=== PATIENT | female | born 1970 | race Caucasian/White ===

== ENCOUNTER 2017-03-23 21:37 | Emergency (ER) | payer MEDICARE, MEDICAID ==
[2017-03-23] MEDS ORDERED: SODIUM CHLORIDE 0.9% 1,000 ML IV ONE ×2 (21:49→22:19)
[2017-03-23] MEDS ORDERED: ONDANSETRON 4 MG/2 ML VIAL IVP STA (21:49)
[2017-03-23] MEDS ORDERED: ONDANSETRON 4 MG/2 ML VIAL ONE (22:19)
[2017-03-23 22:20] LABS: ALBUMIN/GLOBULIN RATIO 1.1 (1.0-2.2); BILIRUBIN,TOTAL 0.7 mg/dL (0.2-1.0); CALCIUM 9.3 mg/dL (8.5-10.3); CREATININE 0.8 mg/dL (0.4-1.0); POTASSIUM 3.6 mmol/L (3.5-5.0); TOTAL PROTEIN 8.2 g/dL (6.7-8.2)
[2017-03-23 22:25] LABS: BILIRUBIN,URINE NEGATIVE (NEGATIVE)
[2017-03-23 22:26] LABS: UA CHARGE (STRIP ONLY) YES; UR CULTURE IF IND NOT INDICATED
[2017-03-23 22:37] LABS: BASOPHILS # (AUTO) 0.1 10^3/uL (0.0-0.1); BASOPHILS % (AUTO) 0.8 %; EOSINOPHILS # (AUTO) 0.1 10^3/uL (0.0-0.7); EOSINOPHILS % (AUTO) 1.1 %; HGB - HEMOGLOBIN 14.7 g/dL (12.0-16.0); LYMPHOCYTES # (AUTO) 1.5 10^3/uL (1.5-3.5); LYMPHOCYTES % (AUTO) 15.5 %; MEAN CORPUSCULAR HEMOGLOBIN 29.8 pg (27.0-31.0); MEAN CORPUSCULAR HGB CONC 33.4 g/dL (32.0-36.0); MEAN PLATELET VOLUME 8.8 fL (7.9-10.8); MONOCYTES # (AUTO) 0.5 10^3/uL (0.0-1.0); MONOCYTES % (AUTO) 4.9 %; NEUTROPHILS # (AUTO) 7.6 10^3/uL (1.5-6.6); NEUTROPHILS % (AUTO) 77.7 %; NUCLEATED RED BLOOD CELLS AUTO 0.1 /100WBC; RED BLOOD COUNT 4.94 10^6/uL (4.20-5.40); RED CELL DISTRIBUTION WIDTH 13.6 % (12.0-15.0); UNCORRECTED WHITE BLOOD COUNT 9.8 x10^3/uL; WHITE BLOOD COUNT 9.8 x10^3/uL (4.8-10.8)
[2017-03-23] MEDS ORDERED: INSULIN REGULAR HUMAN 100 UNIT/1 ML 10 ML MDV SUBQ STA (22:43)
--- NOTE | 2017-03-23 22:43 | ED Physician Documentation ---
PD HPI NVD - Stated complaint Stated Complaint: DIZZINESS/VOMITING - Chief complaint Chief Complaint: Abd Pain - History obtained from History obtained from: Patient - Additonal information Additional information: The patient is a 46-year-old female with history of schizophrenia and history of type 2 diabetes, not taking her medication, who presents with vomiting 2 today. She also reports dizziness, and endorses polyuria and polydipsia. She denies abdominal pain, fever, dysuria, headache, cough, or shortness of breath. She denies history of similar symptoms in the past, but review of her medical records reveals previous evaluations in the emergency department in which her blood sugar was high and she had not been taking her diabetes medication. Review of Systems Constitutional: denies: Fever Ears: denies: Tinnitus/ringing Nose: denies: Congestion Throat: denies: Sore throat Cardiac: denies: Chest pain / pressure Respiratory: denies: Dyspnea, Cough GI: reports: Nausea, Vomiting. denies: Abdominal Pain, Diarrhea : denies: Dysuria Skin: denies: Rash Musculoskeletal: denies: Back pain Neurologic: denies: Headache Endocrine: reports: Polydypsia, Polyuria PD PAST MEDICAL HISTORY - Past Medical History Cardiovascular: Hypertension Respiratory: None Neuro: None Endocrine/Autoimmune: Type 2 diabetes GI: None MANAGER SUMMER: None : None HEENT: None Psych: Depression, Schizophrenia Musculoskeletal: None Derm: None - Past Surgical History Past Surgical History: No - Present Medications Home Medications: Ambulatory Orders Medication Instructions Recorded Confirmed Glipizide [Glipizide Xl] 10 mg PO DAILY #30 tab.er.24 03/24/17 - Allergies Allergies/Adverse Reactions: Allergies Allergy/AdvReac Type Severity Reaction Status Date / Time Penicillins Allergy Unknown UNKNOWN Verified 03/23/17 22:36 - Social History Does the pt smoke?: No Smoking Status: Never smoker Does the pt drink ETOH?: No Does the pt have substance abuse?: No - Immunizations Immunizations are current?: Yes PD ED PE NORMAL - Vitals Vital signs reviewed: Yes (hypertensive and tachycardic) - General General: Alert and oriented X 3, Well developed/nourished, Other (She appears calm, and not agitated as I have seen her in the past.) - HEENT HEENT: Atraumatic, EOMI, Pharynx benign - Neck Neck: Supple, no meningeal sign, No adenopathy, No JVD - Cardiac Cardiac: No murmur, Other (Rapid rate, regular rhythm.) - Respiratory Respiratory: No respiratory distress, Clear bilaterally - Abdomen Abdomen: Soft, Non tender - Back Back: No CVA TTP - Derm Derm: No rash - Extremities Extremities: No edema, No calf tenderness / cord - Neuro Neuro: Alert and oriented X 3, No motor deficit, Normal speech Results - Vitals Vitals: Vital Signs - 24 hr 03/24/17 00:05 Heart Rate 97 Respiratory 22 Rate Blood Pressure 176/95 H O2 Saturation 98 Oxygen O2 Source Room air - Labs Labs: Laboratory Tests 03/23/17 03/23/17 03/23/17 21:58 22:18 22:30 WBC 9.8 RBC 4.94 Hgb 14.7 Hct 44.0 MCV 89.0 MCH 29.8 MCHC 33.4 RDW 13.6 Plt Count 224 MPV 8.8 Neut # 7.6 H Lymph # 1.5 [place] # 0.5 Eos # 0.1 Baso # 0.1 Absolute Nucleated RBC 0.01 Nucleated RBCs 0.1 Sodium 138 Potassium 3.6 Chloride 104 Carbon Dioxide 28 Anion Gap 6.0 BUN 10 Creatinine 0.8 Estimated GFR (MDRD) 77 L Glucose 416 H POC Whole Bld Glucose Calcium 9.3 Total Bilirubin 0.7 AST 21 ALT 20 Alkaline Phosphatase 120 Total Protein 8.2 Albumin 4.3 Globulin 3.8 Albumin/Globulin Ratio 1.1 Lipase 34 Urine Color YELLOW Urine Clarity CLEAR Urine pH 7.0 Ur Specific [place] 1.010 Urine Protein NEGATIVE Urine Glucose (UA) >=1000 H Urine Ketones NEGATIVE Urine Occult Blood NEGATIVE Urine Nitrite NEGATIVE Urine Bilirubin NEGATIVE Urine Urobilinogen 0.2 (NORMAL) Ur Leukocyte Esterase NEGATIVE Ur Microscopic Review NOT INDICATED Urine Culture Comments NOT INDICATED 03/23/17 03/24/17 23:40 00:48 WBC RBC Hgb Hct MCV MCH MCHC RDW Plt Count MPV Neut # Lymph # [place] # Eos # Baso # Absolute Nucleated RBC Nucleated RBCs Sodium Potassium Chloride Carbon Dioxide Anion Gap BUN Creatinine Estimated GFR (MDRD) Glucose POC Whole Bld Glucose 358 H 277 H Calcium Total Bilirubin AST ALT Alkaline Phosphatase Total Protein Albumin Globulin Albumin/Globulin Ratio Lipase Urine Color Urine Clarity Urine pH Ur Specific [place] Urine Protein Urine Glucose (UA) Urine Ketones Urine Occult Blood Urine Nitrite Urine Bilirubin Urine Urobilinogen Ur Leukocyte Esterase Ur Microscopic Review Urine Culture Comments PD MEDICAL DECISION MAKING - ED course Complexity details: reviewed old records, reviewed results, re-evaluated patient , considered differential, d/w patient, d/w family ED course: The patient's presentation is significant for hyperglycemia in a diabetic who has not been taking her diabetic medication. She has associated dehydration, with hypertension and tachycardia. She does not present with ketoacidosis. Her CBC is normal, and her physical exam does not suggest an infectious presentation. Urinalysis is negative except for glucose of greater than 1000. Ketones are negative. Chemistry panel reveals a glucose of 416, with normal BUN /creatinine of 10 and 0.8. Treatment in the emergency department included administration of normal saline 2 L IV, Zofran 4 mg IV, and regular insulin 5 units subcutaneously. Repeat fingerstick blood sugar is improved but remains high at 358. An additional 5 units of regular insulin was administered subcutaneously, and repeat blood sugar further improved to 277. She demonstrates ability to drink fluids without recurrent nausea or vomiting. I discussed with her and her mother the importance of taking her diabetic medication, outpatient follow-up, as well as potentially worrisome signs or symptoms that should prompt reevaluation in the emergency department. She is being discharged with prescription for glipizide. Departure - Departure Disposition: 01 Home, Self Care Clinical Impression: Dehydration Vomiting Qualifiers: Vomiting type: unspecified Vomiting Intractability: non-intractable Nausea presence: with nausea Qualified Code(s): R11.2 - Nausea with vomiting, unspecified Diabetes mellitus with hyperglycemia Qualifiers: Diabetes mellitus type: type 2 Diabetes mellitus intermediate insulin use: without intermediate frame tender use Qualified Code(s): E11.65 - Type 2 diabetes mellitus with hyperglycemia Condition: Stable Instructions: ED Hyperglycemia Diabetic Follow-Up: Tonja Thurston ARNP [Primary Care Provider] - Prescriptions: Glipizide [Glipizide Xl] 10 mg PO DAILY #30 tab.er.24 Comments: Take glipizide daily as prescribed. Drink plenty of fluids. Follow-up with your primary physician within 1 week. Call to schedule an appointment. Return to the emergency department if you develop persistent vomiting, abdominal pain, or otherwise worsening symptoms. Discharge Date/Time: 03/24/17 01:10
[2017-03-23] MEDS ORDERED: INSULIN REGULAR HUMAN 100 UNIT/1 ML 10 ML MDV ONE (22:50)
[2017-03-24] MEDS ORDERED: INSULIN REGULAR HUMAN 100 UNIT/1 ML 10 ML MDV SUBQ STA
[2017-03-24 00:05] VITALS: BP 176/95
[2017-03-24] MEDS ORDERED: INSULIN REGULAR HUMAN 100 UNIT/1 ML 10 ML MDV ONE (00:13)
== END 2017-03-24 01:10 | disposition home or self-care (01) ==
LOC: ED 21:37
DX: E86.0 Dehydration (principal); R11.2 Nausea with vomiting, unspecified; E11.65 Type 2 diabetes mellitus with hyperglycemia; Z91.14 Patient's other noncompliance with medication regimen; I10 Essential (primary) hypertension; R00.0 Tachycardia, unspecified
CPT/HCPCS: 36415; 80053; 81003; 83690; 85025; 96374; 99284; J1815; 81001; 87086

== ENCOUNTER 2021-11-26 14:53 | Emergency (ER) | payer MEDICARE, MEDICAID ==
[2021-11-26 15:01] VITALS: BP 200/80
--- NOTE | 2021-11-26 15:12 | ED Physician Documentation ---
History of Present Illness - Stated complaint Stated Complaint: HEADACHE - Chief complaint Chief Complaint: General - History obtained from History obtained from: Patient - Additonal information Additional information: This is a 51-year-old woman with history of diabetes and schizophrenia who states she is 48 years old and requests a test. When queried as to why she thinks she might be it is because she is 3 weeks late on her period. She is not having any cramping or bleeding. I asked her why she did not go to the drugstore to get a test and she said she did not know you could do that. She is noncompliant with her diabetes medications but declines having her blood sugar checked today. Review of Systems GI: denies: Abdominal Pain, Nausea, Vomiting, Diarrhea : denies: Dysuria, Frequency, Hesitancy, Vaginal bleeding PD PAST MEDICAL HISTORY - Past Medical History Cardiovascular: Hypertension Respiratory: None Endocrine/Autoimmune: Type 2 diabetes GI: None TYPE COPYIST: None : None HEENT: None Psych: Depression, Schizophrenia Musculoskeletal: None Derm: None - Past Surgical History Past Surgical History: No - Present Medications Home Medications: Ambulatory Orders Medication Instructions Recorded Confirmed Glipizide [Glipizide Xl] 10 mg PO DAILY #30 tab.er.24 03/24/17 - Allergies Allergies/Adverse Reactions: Allergies Allergy/AdvReac Type Severity Reaction Status Date / Time Penicillins Allergy Unknown UNKNOWN Verified 03/23/17 22:36 - Social History Does the pt smoke?: No Smoking Status: Never smoker Does the pt drink ETOH?: No Does the pt have substance abuse?: No - Immunizations Immunizations are current?: Yes PD ED PE NORMAL - Vitals Vital signs reviewed: Yes - General General: Alert and oriented X 3, No acute distress - Neuro Neuro: Alert and oriented X 3, Normal speech - Psych Psych: Normal mood, Normal affect Results - Vitals Vitals: Vital Signs - 24 hr 11/26/21 14:57 Temperature 36.5 C Heart Rate 80 Respiratory 16 Rate Blood Pressure 200/80 H O2 Saturation 99 Oxygen O2 Source Room air - Labs Labs: Laboratory Tests 11/26/21 15:05 Urine HCG, Qual NEGATIVE PD MEDICAL DECISION MAKING - ED course ED course: 51-year-old woman presents with concern for , She had a missed menses. Discussed with her that this may be normal at her age. Note made on the chart that she has a history of pseudocyesis. She declined further work-up for blood pressure or potential blood sugar issues today. Encouraged primary care follow- up for this. Departure - Departure Disposition: 01 Home, Self Care Clinical Impression: Not currently Condition: Good Comments: You are seen today for a test, note in the future that for simple questions of you can get test quite treat cheaply at the drugstore. Return for new or worsening symptoms. We did note that your blood pressure was quite elevated and as discussed you are not managing your diabetes. You have declined a blood sugar test today. Recommend you follow-up with your primary care physician, next available appointment for routine care and management of uncontrolled diabetes and blood pressure.
[2021-11-26 15:18] LABS: HCG UR QUAL NEGATIVE
== END 2021-11-26 15:30 | disposition home or self-care (01) ==
LOC: ED 14:53
DX: N91.2 Amenorrhea, unspecified (principal); I10 Essential (primary) hypertension; E11.9 Type 2 diabetes mellitus without complications
CPT/HCPCS: 81025; 99281; 99283

== ENCOUNTER 2022-07-31 11:24 | Emergency (ER) | payer MEDICAID ==
[2022-07-31 14:25] LABS: B. PARAPERTUSSIS- RESP PCR PAN NOT DETECTED; B. PERTUSSIS- RESP PCR PANEL NOT DETECTED; C. PNEUMONIAE- RESP PCR PANEL NOT DETECTED; CORONAVIRUS 229E-RESP PCR NOT DETECTED; CORONAVIRUS HKU1-RESP PCR NOT DETECTED; CORONAVIRUS NL63-RESP PCR NOT DETECTED; CORONAVIRUS OC43-RESP PCR NOT DETECTED; HUMAN METAPNEUMOVIRUS NOT DETECTED; INFLUENZA A- RESP PCR PANEL NOT DETECTED; INFLUENZA B - RESP PCR PANEL NOT DETECTED; M. PNEUMONIAE- RESP PCR PANEL NOT DETECTED; PARAINFLUENZA VIRUS 1 NOT DETECTED; PARAINFLUENZA VIRUS 2 NOT DETECTED; PARAINFLUENZA VIRUS 3 NOT DETECTED; PARAINFLUENZA VIRUS 4 NOT DETECTED; RHINOVIRUS/ENTEROVIRUS NOT DETECTED; RSV- RESP PCR PANEL NOT DETECTED; SARS-CoV-2 -RESP PCR PANEL NOT DETECTED
--- NOTE | 2022-07-31 15:55 | ED Physician Documentation ---
History of Present Illness - Stated complaint Stated Complaint: BODY ACHE/CHILLS - Chief complaint Chief Complaint: General - Additonal information Additional information: 51-year-old female who has a history of schizophrenia as well as diabetes presents the emergency department stating she does not feel well. She reports that she has chills. She denies abdominal pain, chest pain, shortness of air, nausea or vomiting. She is unsure if she is . She has a very flat affect. She simply answers no to most questions. Denies taking any medications. Review of Systems Constitutional: reports: Fever, Myalgias, Fatigue Throat: reports: Reviewed and negative Cardiac: reports: Reviewed and negative Respiratory: reports: Reviewed and negative GI: reports: Reviewed and negative Neurologic: reports: Headache Psychiatric: reports: Other (Flat affect) PD PAST MEDICAL HISTORY - Past Medical History Cardiovascular: Hypertension Respiratory: None Endocrine/Autoimmune: Type 2 diabetes GI: None PRIVACY ATTORNEY: None : None HEENT: None Psych: Depression, Schizophrenia Musculoskeletal: None Derm: None - Past Surgical History Past Surgical History: No - Present Medications Home Medications: Ambulatory Orders Medication Instructions Recorded Confirmed No Known Home Medications 07/31/22 07/31/22 - Allergies Allergies/Adverse Reactions: Allergies Allergy/AdvReac Type Severity Reaction Status Date / Time Penicillins Allergy Unknown UNKNOWN Verified 03/23/17 22:36 - Social History Does the pt smoke?: No Smoking Status: Never smoker Does the pt drink ETOH?: No Does the pt have substance abuse?: No - Immunizations Immunizations are current?: Yes PD ED PE NORMAL - General General: Alert and oriented X 3, No acute distress - HEENT HEENT: PERRL, Moist mucous membranes, Other (Subconjunctival hemorrhage right eye) - Neck Neck: Supple, no meningeal sign, No adenopathy - Cardiac Cardiac: RRR, No murmur - Respiratory Respiratory: No respiratory distress, Clear bilaterally - Abdomen Abdomen: Normal bowel sounds, Soft, Non tender, Non distended - Female Female : Deferred - Back Back: No CVA TTP - Derm Derm: Normal color, Warm and dry - Extremities Extremities: No deformity, No tenderness to palpate, Normal ROM s pain - Neuro Neuro: Alert and oriented X 3, groover and turner 2-12 intact Eye Opening: Spontaneous Motor: Obeys Commands Verbal: Oriented GCS Score: 15 - Psych Psych: No: Normal affect (Flat affect. Poor eye contact.) Results - Vitals Vitals: Vital Signs - 24 hr 07/31/22 07/31/22 07/31/22 12:00 12:05 15:54 Temperature 37.4 C 37.3 C 37.0 C Heart Rate 92 92 88 Respiratory 16 16 16 Rate Blood Pressure 225/96 H 225/96 H 197/105 H O2 Saturation 98 98 100 Oxygen O2 Source Room air - Labs Labs: Laboratory Tests 07/31/22 07/31/22 07/31/22 13:20 15:51 15:51 WBC 9.3 RBC 4.56 Hgb 13.4 Hct 41.4 MCV 90.8 MCH 29.4 MCHC 32.4 RDW 13.2 Plt Count 230 MPV 10.5 Neut # (Auto) 5.7 Lymph # (Auto) 2.8 [place] # (Auto) 0.5 Eos # (Auto) 0.2 Baso # (Auto) 0.1 Absolute Nucleated RBC 0.00 Nucleated RBC % 0.0 Sodium 143 Potassium 3.6 Chloride 108 Carbon Dioxide 29 Anion Gap 6.0 BUN 12 Creatinine 0.9 Estimated GFR (MDRD) 65 L Glucose 130 H Calcium 9.5 Total Bilirubin 0.6 AST 24 ALT 21 Alkaline Phosphatase 72 Total Protein 8.3 H Albumin 4.3 Globulin 4.0 Albumin/Globulin Ratio 1.1 Lipase 51 Urine Color Urine Clarity Urine pH Ur Specific [place] Urine Protein Urine Glucose (UA) Urine Ketones Urine Occult Blood Urine Nitrite Urine Bilirubin Urine Urobilinogen Ur Leukocyte Esterase Ur Microscopic Review Urine Culture Comments Urine HCG, Qual Nasal Adenovirus (PCR) NOT DETECTED Nasal B. parapertussis DNA (PCR) NOT DETECTED Nasal Coronavir 229E PCR NOT DETECTED Nasal Coronavir HKU1 PCR NOT DETECTED Nasal Coronavir NL63 PCR NOT DETECTED Nasal Coronavir OC43 PCR NOT DETECTED Nasal Enterovir/Rhinovir PCR NOT DETECTED Nasal Influenza B PCR NOT DETECTED Nasal Influenza A PCR NOT DETECTED Nasal Parainfluen 1 PCR NOT DETECTED Nasal Parainfluen 2 PCR NOT DETECTED Nasal Parainfluen 3 PCR NOT DETECTED Nasal Parainfluen 4 PCR NOT DETECTED Nasal RSV (PCR) NOT DETECTED Nasal B.pertussis DNA PCR NOT DETECTED Nasal C.pneumoniae (PCR) NOT DETECTED [place] Human Metapneumo PCR NOT DETECTED Nasal M.pneumoniae (PCR) NOT DETECTED Nasal SARS-CoV-2 (PCR) NOT DETECTED 07/31/22 07/31/22 15:51 15:51 WBC RBC Hgb Hct MCV MCH MCHC RDW Plt Count MPV Neut # (Auto) Lymph # (Auto) [place] # (Auto) Eos # (Auto) Baso # (Auto) Absolute Nucleated RBC Nucleated RBC % Sodium Potassium Chloride Carbon Dioxide Anion Gap BUN Creatinine Estimated GFR (MDRD) Glucose Calcium Total Bilirubin AST ALT Alkaline Phosphatase Total Protein Albumin Globulin Albumin/Globulin Ratio Lipase Urine Color YELLOW Urine Clarity CLEAR Urine pH 6.0 Ur Specific [place] 1.020 Urine Protein NEGATIVE Urine Glucose (UA) NEGATIVE Urine Ketones NEGATIVE Urine Occult Blood NEGATIVE Urine Nitrite NEGATIVE Urine Bilirubin NEGATIVE Urine Urobilinogen 0.2 (NORMAL) Ur Leukocyte Esterase NEGATIVE Ur Microscopic Review NOT INDICATED Urine Culture Comments NOT INDICATED Urine HCG, Qual NEGATIVE Nasal Adenovirus (PCR) Nasal B. parapertussis DNA (PCR) Nasal Coronavir 229E PCR Nasal Coronavir HKU1 PCR Nasal Coronavir NL63 PCR Nasal Coronavir OC43 PCR Nasal Enterovir/Rhinovir PCR Nasal Influenza B PCR Nasal Influenza A PCR Nasal Parainfluen 1 PCR Nasal Parainfluen 2 PCR Nasal Parainfluen 3 PCR Nasal Parainfluen 4 PCR Nasal RSV (PCR) Nasal B.pertussis DNA PCR Nasal C.pneumoniae (PCR) [place] Human Metapneumo PCR Nasal M.pneumoniae (PCR) Nasal SARS-CoV-2 (PCR) PD MEDICAL DECISION MAKING - ED course Complexity details: reviewed old records, reviewed results, re-evaluated patient, considered differential, d/w patient ED course: 51-year-old female who has a history of diabetes as well as schizophrenia presents to the emergency department with chief complaint that she feels unwell. She has a very flat affect and does not make good eye contact. She endorses a headache. Denies chest pain shortness of air belly pain. She appears well- groomed well dressed and well cared for. A bio fire respiratory panel was negative. CBC and electrolytes were without acute worrisome findings. Nothing to suggest DKA. Urine is without findings of infection and she is not . We do note modestly elevated blood pressure which has been seen with similar ED visits. I have encouraged patient to follow her blood pressure closely with her primary care provider. She is discharged home in stable condition. Departure - Departure Disposition: 01 Home, Self Care Clinical Impression: Elevated blood pressure reading, History of schizophrenia Fatigue Qualifiers: Fatigue type: unspecified Qualified Code(s): R53.83 - Other fatigue Condition: Stable Record reviewed to determine appropriate education?: Yes Comments: Vani you came to the emergency department today stating that you have been feeling unwell for the last few days. Here in the emergency department your CBC and electrolytes were normal. A viral panel to check for different viruses was also negative. Your clinical physical exam was unremarkable. The only exception was your elevated blood pressure which you have had with previous ER visits. I encourage you to follow closely with your primary care doctor to discuss management of this in the long-term.
[2022-07-31 15:58] LABS: BASOPHILS # (AUTO) 0.1 10^3/uL (0.0-0.1); BASOPHILS % (AUTO) 0.6 %; EOSINOPHILS # (AUTO) 0.2 10^3/uL (0.0-0.7); EOSINOPHILS % (AUTO) 1.9 %; HCT - HEMATOCRIT 41.4 % (37.0-47.0); HGB - HEMOGLOBIN 13.4 g/dL (12.0-16.0); LYMPHOCYTES # (AUTO) 2.8 10^3/uL (1.5-3.5); LYMPHOCYTES % (AUTO) 30.5 %; MEAN CORPUSCULAR HEMOGLOBIN 29.4 pg (27.0-31.0); MEAN CORPUSCULAR HGB CONC 32.4 g/dL (32.0-36.0); MEAN CORPUSCULAR VOLUME 90.8 fL (81.0-99.0); MEAN PLATELET VOLUME 10.5 fL (7.9-10.8); MONOCYTES # (AUTO) 0.5 10^3/uL (0.0-1.0); MONOCYTES % (AUTO) 5.4 %; NEUTROPHILS # (AUTO) 5.7 10^3/uL (1.5-6.6); NEUTROPHILS % (AUTO) 61.4 %; PLT - PLATELET COUNT 230 10^3/uL (130-450); RED BLOOD COUNT 4.56 10^6/uL (4.20-5.40); RED CELL DISTRIBUTION WIDTH 13.2 % (12.0-15.0); WHITE BLOOD COUNT 9.3 x10^3/uL (4.8-10.8)
[2022-07-31 16:03] LABS: BILIRUBIN,URINE NEGATIVE (NEGATIVE); GLUCOSE, URINE (UA) NEGATIVE (NEGATIVE); KETONES,URINE (UA) NEGATIVE (NEGATIVE); LEUKOCYTE ESTERASE, URINE NEGATIVE (NEGATIVE); NITRITE,URINE NEGATIVE (NEGATIVE); OCCULT BLOOD,URINE NEGATIVE (NEGATIVE); PROTEIN,URINE NEGATIVE (NEGATIVE); UROBILINOGEN,URINE 0.2 (NORMAL) E.U./dL (NORMAL)
[2022-07-31 16:05] LABS: HCG UR QUAL NEGATIVE
[2022-07-31 16:06] LABS: CLARITY,URINE CLEAR (CLEAR)
[2022-07-31 16:11] LABS: ALBUMIN 4.3 g/dL (3.2-5.5); ALBUMIN/GLOBULIN RATIO 1.1 (1.0-2.2); BILIRUBIN,TOTAL 0.6 mg/dL (0.2-1.0); CALCIUM 9.5 mg/dL (8.5-10.3); CREATININE 0.9 mg/dL (0.4-1.0); POTASSIUM 3.6 mmol/L (3.5-5.0); TOTAL PROTEIN 8.3 g/dL (6.7-8.2)
[2022-07-31 16:34] VITALS: BP 170/80
== END 2022-07-31 16:47 | disposition home or self-care (01) ==
LOC: ED 11:24
DX: R03.0 Elevated blood-pressure reading, without diagnosis of hypertension (principal); R53.83 Other fatigue; F20.9 Schizophrenia, unspecified; E11.9 Type 2 diabetes mellitus without complications; Z20.822 Contact with and (suspected) exposure to COVID-19
CPT/HCPCS: 36415; 80053; 81001; 81003; 81025; 83690; 85025; 87086; 87633; 99282; 99283

== ENCOUNTER 2023-02-04 10:32 | Emergency (ER) | payer MEDICAID ==
[2023-02-04 11:25] LABS: RAPID STREP SCREEN Negative (Negative)
[2023-02-04 13:03] LABS: B. PARAPERTUSSIS- RESP PCR PAN NOT DETECTED; B. PERTUSSIS- RESP PCR PANEL NOT DETECTED; C. PNEUMONIAE- RESP PCR PANEL NOT DETECTED; CORONAVIRUS 229E-RESP PCR NOT DETECTED; CORONAVIRUS HKU1-RESP PCR NOT DETECTED; CORONAVIRUS NL63-RESP PCR NOT DETECTED; CORONAVIRUS OC43-RESP PCR NOT DETECTED; HUMAN METAPNEUMOVIRUS NOT DETECTED; INFLUENZA A- RESP PCR PANEL NOT DETECTED; INFLUENZA B - RESP PCR PANEL NOT DETECTED; M. PNEUMONIAE- RESP PCR PANEL NOT DETECTED; PARAINFLUENZA VIRUS 1 NOT DETECTED; PARAINFLUENZA VIRUS 2 NOT DETECTED; PARAINFLUENZA VIRUS 3 NOT DETECTED; PARAINFLUENZA VIRUS 4 NOT DETECTED; RHINOVIRUS/ENTEROVIRUS NOT DETECTED; RSV- RESP PCR PANEL NOT DETECTED; SARS-CoV-2 -RESP PCR PANEL NOT DETECTED
[2023-02-04] MEDS ORDERED: PROCHLORPERAZINE 10 MG/2 ML VIAL IVP STA (13:31)
[2023-02-04] MEDS ORDERED: KETOROLAC 30 MG/ML VIAL IVP STA (13:32)
[2023-02-04] MEDS ORDERED: diphenhydrAMINE INJ 50 MG/ML VIAL IVP STA (13:32)
[2023-02-04 13:40] LABS: BASOPHILS # (AUTO) 0.1 10^3/uL (0.0-0.1); BASOPHILS % (AUTO) 0.6 %; EOSINOPHILS # (AUTO) 0.2 10^3/uL (0.0-0.7); EOSINOPHILS % (AUTO) 1.6 %; HCT - HEMATOCRIT 43.5 % (37.0-47.0); HGB - HEMOGLOBIN 14.2 g/dL (12.0-16.0); LYMPHOCYTES # (AUTO) 3.1 10^3/uL (1.5-3.5); LYMPHOCYTES % (AUTO) 28.8 %; MEAN CORPUSCULAR HEMOGLOBIN 29.6 pg (27.0-31.0); MEAN CORPUSCULAR HGB CONC 32.6 g/dL (32.0-36.0); MEAN CORPUSCULAR VOLUME 90.6 fL (81.0-99.0); MEAN PLATELET VOLUME 10.1 fL (7.9-10.8); MONOCYTES # (AUTO) 0.5 10^3/uL (0.0-1.0); MONOCYTES % (AUTO) 4.4 %; NEUTROPHILS # (AUTO) 6.9 10^3/uL (1.5-6.6); NEUTROPHILS % (AUTO) 64.3 %; PLT - PLATELET COUNT 243 10^3/uL (130-450); RED CELL DISTRIBUTION WIDTH 13.1 % (12.0-15.0); WHITE BLOOD COUNT 10.8 x10^3/uL (4.8-10.8)
[2023-02-04 13:41] LABS: VBG PCO2 55.8 mmHg (41-51); VBG PH 7.335 (7.31-7.41); VBG PO2 20.3 mmHg (25-47)
[2023-02-04 13:42] LABS: VBG BASE EXCESS 1.9 mmol/L (-2 - +2); VBG HCO3 29.1 mmol/L (23-28); VBG OXYGEN SATURATION 34.1 % (60-80); VBG TOTAL CO2 30.8 mmol/L (24-29)
[2023-02-04 13:49] LABS: INR 0.9 (0.8-1.2); PT - PROTHROMBIN TIME 10.6 secs (9.9-12.6)
[2023-02-04 13:55] LABS: ACETAMINOPHEN < 10 ug/mL (10-30); ALBUMIN 4.4 g/dL (3.2-5.5); ALKALINE PHOSPHATASE 89 IU/L (42-121); ALT ALANINE AMINOTRANSFERASE 19 IU/L (10-60); AST ASPARTATE AMINOTRANSFERASE 21 IU/L (10-42); BILIRUBIN,TOTAL 0.7 mg/dL (0.2-1.0); BUN - BLOOD UREA NITROGEN 13 mg/dL (6-20); CALCIUM 9.7 mg/dL (8.5-10.3); CARBON DIOXIDE - CO2 29 mmol/L (21-32); CHLORIDE 107 mmol/L (101-111); CK- CREATINE KINASE 105 IU/L (22-269); ETOH - ETHANOL < 5.0 mg/dL; GFR - MDRD 58 (>89); GLUCOSE 172 mg/dL (70-100); LIPASE 44 U/L (22-51); POTASSIUM 4.8 mmol/L (3.5-5.0); SALICYLATE < 6.0 mg/dL; SODIUM 143 mmol/L (135-145); TOTAL PROTEIN 8.6 g/dL (6.7-8.2)
[2023-02-04 14:34] LABS: MUDS CUTOFF CONCENTRATIONS CUTOFF CONC BELOW:
[2023-02-04 14:36] LABS: BILIRUBIN,URINE NEGATIVE (NEGATIVE); GLUCOSE, URINE (UA) NEGATIVE (NEGATIVE); KETONES,URINE (UA) NEGATIVE (NEGATIVE); LEUKOCYTE ESTERASE, URINE NEGATIVE (NEGATIVE); NITRITE,URINE NEGATIVE (NEGATIVE); OCCULT BLOOD,URINE NEGATIVE (NEGATIVE); PROTEIN,URINE NEGATIVE (NEGATIVE); UROBILINOGEN,URINE 0.2 (NORMAL) E.U./dL (NORMAL)
[2023-02-04 14:39] LABS: CLARITY,URINE CLEAR (CLEAR); HCG UR QUAL NEGATIVE
[2023-02-04 14:41] VITALS: BP 169/90
--- NOTE | 2023-02-04 14:44 | ED Physician Documentation ---
History of Present Illness - Stated complaint Stated Complaint: HEADACHE,WEAKNESS - Chief complaint Chief Complaint: Heent - Additonal information Additional information: Patient 52-year-old female presenting to the emergency department with right- sided headache and generalized weakness. Reports history of migraine headache disorder. Denies head trauma, fever, chest pain, shortness of breath, abdominal pain. He is minimally communicative at this time and answers questions by shaking her head yes and no. Is able to tell me her name where she is in the current date. 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 : None HEENT: None Psych: Depression, Schizophrenia Musculoskeletal: None Derm: None - Past Surgical History Past Surgical History: No - Present Medications Home Medications: Ambulatory Orders Medication Instructions Recorded Confirmed No Known Home Medications 07/31/22 02/04/23 - Allergies Allergies/Adverse Reactions: Allergies Allergy/AdvReac Type Severity Reaction Status Date / Time Penicillins Allergy Unknown UNKNOWN Verified 02/04/23 11:03 - Social History Does the pt smoke?: No Smoking Status: Never smoker Does the pt drink ETOH?: No Does the pt have substance abuse?: No - Immunizations Immunizations are current?: Yes PD ED PE NORMAL - Vitals Vital signs reviewed: Yes (WNL) - General General: Alert and oriented X 3, No acute distress, Well developed/nourished - HEENT HEENT: Atraumatic, PERRL, EOMI, Ears normal, Moist mucous membranes, Pharynx benign - Neck Neck: Supple, no meningeal sign, No bony TTP, No adenopathy, Thyroid normal, No JVD, No bruit, C-Spine cleared by NEXUS criteria - Cardiac Cardiac: RRR, No murmur, No gallop, No rub, Strong equal pulses - Respiratory Respiratory: No respiratory distress, Clear bilaterally - Abdomen Abdomen: Normal bowel sounds, Soft, Non tender, Non distended - Female Female : Deferred, Pt declined - Rectal Rectal: Deferred - Back Back: No CVA TTP - Derm Derm: Normal color - Extremities Extremities: No deformity - Neuro Neuro: Alert and oriented X 3, 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 Relevant findings are: Sinus rhythm with rate 77 bpm. Normal axis. Normal LA, QRS, QTc intervals. Early repolarization pattern noted. Isolated T wave in lead V6 noted. No previous EKG available for comparison. - Labs Labs: Laboratory Tests 02/04/23 02/04/23 02/04/23 11:12 12:06 13:35 WBC 10.8 RBC 4.80 Hgb 14.2 Hct 43.5 MCV 90.6 MCH 29.6 MCHC 32.6 RDW 13.1 Plt Count 243 MPV 10.1 Neut # (Auto) 6.9 H Lymph # (Auto) 3.1 [place] # (Auto) 0.5 Eos # (Auto) 0.2 Baso # (Auto) 0.1 Absolute Nucleated RBC 0.00 Nucleated RBC % 0.0 PT INR VBG pH VBG pCO2 VBG pO2 VBG HCO3 VBG Total CO2 VBG O2 Saturation VBG Base Excess Sodium Potassium Chloride Carbon Dioxide Anion Gap BUN Creatinine Estimated GFR (MDRD) Glucose Lactic Acid Calcium Total Bilirubin AST ALT Alkaline Phosphatase Total Creatine Kinase Total Protein Albumin Globulin Albumin/Globulin Ratio Lipase TSH Urine Color Urine Clarity Urine pH Ur Specific [place] Urine Protein Urine Glucose (UA) Urine Ketones Urine Occult Blood Urine Nitrite Urine Bilirubin Urine Urobilinogen Ur Leukocyte Esterase Ur Microscopic Review Urine Culture Comments Urine HCG, Qual Nasal Adenovirus (PCR) NOT DETECTED Nasal B. parapertussis DNA (PCR) NOT DETECTED Nasal Coronavir 229E PCR NOT DETECTED Nasal Coronavir HKU1 PCR NOT DETECTED Nasal Coronavir NL63 PCR NOT DETECTED Nasal Coronavir OC43 PCR NOT DETECTED Nasal Enterovir/Rhinovir PCR NOT DETECTED Nasal Influenza B PCR NOT DETECTED Nasal Influenza A PCR NOT DETECTED Nasal Parainfluen 1 PCR NOT DETECTED Nasal Parainfluen 2 PCR NOT DETECTED Nasal Parainfluen 3 PCR NOT DETECTED Nasal Parainfluen 4 PCR NOT DETECTED Nasal RSV (PCR) NOT DETECTED Nasal B.pertussis DNA PCR NOT DETECTED Nasal C.pneumoniae (PCR) NOT DETECTED [place] Human Metapneumo PCR NOT DETECTED Nasal M.pneumoniae (PCR) NOT DETECTED Nasal SARS-CoV-2 (PCR) NOT DETECTED Salicylates Urine Opiates Screen Ur Oxycodone Screen Urine Methadone Screen Ur Propoxyphene Screen Acetaminophen Ur Barbiturates Screen Ur Tricyclics Screen Ur Phencyclidine Scrn Ur Amphetamine Screen U Methamphetamines Scrn U Benzodiazepines Scrn Urine Cocaine Screen U Cannabinoids Screen Ethyl Alcohol Group A Strep Rapid Negative 02/04/23 02/04/23 02/04/23 13:35 13:35 13:35 WBC RBC Hgb Hct MCV MCH MCHC RDW Plt Count MPV Neut # (Auto) Lymph # (Auto) [place] # (Auto) Eos # (Auto) Baso # (Auto) Absolute Nucleated RBC Nucleated RBC % PT 10.6 INR 0.9 VBG pH VBG pCO2 VBG pO2 VBG HCO3 VBG Total CO2 VBG O2 Saturation VBG Base Excess Sodium 143 Potassium 4.8 Chloride 107 Carbon Dioxide 29 Anion Gap 7.0 BUN 13 Creatinine 1.0 Estimated GFR (MDRD) 58 L Glucose 172 H Lactic Acid 1.0 Calcium 9.7 Total Bilirubin 0.7 AST 21 ALT 19 Alkaline Phosphatase 89 Total Creatine Kinase 105 Total Protein 8.6 H Albumin 4.4 Globulin 4.2 Albumin/Globulin Ratio 1.0 Lipase 44 TSH Urine Color Urine Clarity Urine pH Ur Specific [place] Urine Protein Urine Glucose (UA) Urine Ketones Urine Occult Blood Urine Nitrite Urine Bilirubin Urine Urobilinogen Ur Leukocyte Esterase Ur Microscopic Review Urine Culture Comments Urine HCG, Qual Nasal Adenovirus (PCR) Nasal B. parapertussis DNA (PCR) Nasal Coronavir 229E PCR Nasal Coronavir HKU1 PCR Nasal Coronavir NL63 PCR Nasal Coronavir OC43 PCR Nasal Enterovir/Rhinovir PCR Nasal Influenza B PCR Nasal Influenza A PCR Nasal Parainfluen 1 PCR Nasal Parainfluen 2 PCR Nasal Parainfluen 3 PCR Nasal Parainfluen 4 PCR Nasal RSV (PCR) Nasal B.pertussis DNA PCR Nasal C.pneumoniae (PCR) [place] Human Metapneumo PCR Nasal M.pneumoniae (PCR) Nasal SARS-CoV-2 (PCR) Salicylates < 6.0 Urine Opiates Screen Ur Oxycodone Screen Urine Methadone Screen Ur Propoxyphene Screen Acetaminophen < 10 L Ur Barbiturates Screen Ur Tricyclics Screen Ur Phencyclidine Scrn Ur Amphetamine Screen U Methamphetamines Scrn U Benzodiazepines Scrn Urine Cocaine Screen U Cannabinoids Screen Ethyl Alcohol < 5.0 Group A Strep Rapid 02/04/23 02/04/23 02/04/23 13:35 13:35 14:00 WBC RBC Hgb Hct MCV MCH MCHC RDW Plt Count MPV Neut # (Auto) Lymph # (Auto) [place] # (Auto) Eos # (Auto) Baso # (Auto) Absolute Nucleated RBC Nucleated RBC % PT INR VBG pH 7.335 VBG pCO2 55.8 H VBG pO2 20.3 L VBG HCO3 29.1 H VBG Total CO2 30.8 H VBG O2 Saturation 34.1 L VBG Base Excess 1.9 Sodium Potassium Chloride Carbon Dioxide Anion Gap BUN Creatinine Estimated GFR (MDRD) Glucose Lactic Acid Calcium Total Bilirubin AST ALT Alkaline Phosphatase Total Creatine Kinase Total Protein Albumin Globulin Albumin/Globulin Ratio Lipase TSH 0.81 Urine Color YELLOW Urine Clarity CLEAR Urine pH 6.0 Ur Specific [place] 1.020 Urine Protein NEGATIVE Urine Glucose (UA) NEGATIVE Urine Ketones NEGATIVE Urine Occult Blood NEGATIVE Urine Nitrite NEGATIVE Urine Bilirubin NEGATIVE Urine Urobilinogen 0.2 (NORMAL) Ur Leukocyte Esterase NEGATIVE Ur Microscopic Review NOT INDICATED Urine Culture Comments NOT INDICATED Urine HCG, Qual NEGATIVE Nasal Adenovirus (PCR) Nasal B. parapertussis DNA (PCR) Nasal Coronavir 229E PCR Nasal Coronavir HKU1 PCR Nasal Coronavir NL63 PCR Nasal Coronavir OC43 PCR Nasal Enterovir/Rhinovir PCR Nasal Influenza B PCR Nasal Influenza A PCR Nasal Parainfluen 1 PCR Nasal Parainfluen 2 PCR Nasal Parainfluen 3 PCR Nasal Parainfluen 4 PCR Nasal RSV (PCR) Nasal B.pertussis DNA PCR Nasal C.pneumoniae (PCR) [place] Human Metapneumo PCR Nasal M.pneumoniae (PCR) Nasal SARS-CoV-2 (PCR) Salicylates Urine Opiates Screen NEGATIVE Ur Oxycodone Screen NEGATIVE Urine Methadone Screen NEGATIVE Ur Propoxyphene Screen NEGATIVE Acetaminophen Ur Barbiturates Screen NEGATIVE Ur Tricyclics Screen NEGATIVE Ur Phencyclidine Scrn NEGATIVE Ur Amphetamine Screen NEGATIVE U Methamphetamines Scrn NEGATIVE U Benzodiazepines Scrn NEGATIVE Urine Cocaine Screen NEGATIVE U Cannabinoids Screen NEGATIVE Ethyl Alcohol Group A Strep Rapid PD Medical Decision Making - ED course Complexity details: reviewed old records, reviewed results, considered differential, d/w patient, d/w PMD ED course: Patient 52-year-old female with past medical significant forHypertension, type 2 diabetes, depression, migraine headache disorder presenting to the emergency department with report of headache, sore throat, myalgias. Afebrile, hemodynamically stable on arrival to the emergency department. During my initial evaluation patient seemed minimally communicative however I did reinterview her with a female hoop rolls operator present and she became much more communicative. She had a nonfocal nonlateralizing neurologic exam. She reported right-sided headache that was not maximal at time of onset and a history of similar headaches in the past. Denied chest or abdominal pain. Her EKG is outlined above demonstrated an early repolarization pattern with a single isolated nonspecific T wave inversion. Comprehensive labs obtained were all within normal limits are generally nonactionable. She was given Compazine, Benadryl, Toradol and on reevaluation reported feeling significantly better. Stated that she felt comfortable going home. Was discharged with instructions to follow-up with primary care or return to the emergency department as needed. Departure - Departure Disposition: 01 Home, Self Care Clinical Impression: Atypical migraine Instructions: ED Headache Migraine Comments: Please follow-up with your primary care doctor. Discharge Date/Time: 02/04/23 14:51
[2023-02-04 14:53] LABS: AMPHETAMINE SCREEN,URINE NEGATIVE (NEGATIVE); BARBITURATE SCREEN,UR NEGATIVE (NEGATIVE); BENZODIAZEPINES SCREEN, URINE NEGATIVE (NEGATIVE); COCAINE SCREEN URINE NEGATIVE (NEGATIVE); METHADONE SCREEN, URINE NEGATIVE (NEGATIVE); METHAMPHETAMINES SCREEN, URINE NEGATIVE (NEGATIVE); OPIATE SCREEN, URINE NEGATIVE (NEGATIVE); OXYCODONE SCREEN, URINE NEGATIVE (NEGATIVE); PROPOXYPHENE SCREEN, URINE NEGATIVE (NEGATIVE); THC CANNABINOID SCREEN, URINE NEGATIVE (NEGATIVE); TRICYCLIC ANTIDEPRESSANT,URINE NEGATIVE (NEGATIVE)
== END 2023-02-04 14:51 | disposition home or self-care (01) ==
LOC: ED 10:32
DX: G43.909 Migraine, unspecified, not intractable, without status migrainosus (principal); Z20.822 Contact with and (suspected) exposure to COVID-19; I10 Essential (primary) hypertension; E11.9 Type 2 diabetes mellitus without complications
CPT/HCPCS: 36415; 80053; 80306; 80307; 80320; 80329; 81003; 81025; 82550; 82803; 83605; 83690; 84443; 85025; 85610; 87070; 87430; 87633; 93005; 96374; 96375; 99284; J1200; 81001; 87086

== ENCOUNTER 2023-02-13 07:19 | Outpatient (CLI) | payer MEDICAID ==
[2023-02-13 11:33] LABS: BASOPHILS # (AUTO) 0.1 10^3/uL (0.0-0.1); BASOPHILS % (AUTO) 0.9 %; EOSINOPHILS # (AUTO) 0.2 10^3/uL (0.0-0.7); EOSINOPHILS % (AUTO) 2.7 %; HCT - HEMATOCRIT 42.4 % (37.0-47.0); HGB - HEMOGLOBIN 13.7 g/dL (12.0-16.0); LYMPHOCYTES # (AUTO) 2.4 10^3/uL (1.5-3.5); LYMPHOCYTES % (AUTO) 30.4 %; MEAN CORPUSCULAR HEMOGLOBIN 29.3 pg (27.0-31.0); MEAN CORPUSCULAR HGB CONC 32.3 g/dL (32.0-36.0); MEAN CORPUSCULAR VOLUME 90.6 fL (81.0-99.0); MONOCYTES # (AUTO) 0.5 10^3/uL (0.0-1.0); MONOCYTES % (AUTO) 6.1 %; NEUTROPHILS # (AUTO) 4.7 10^3/uL (1.5-6.6); NEUTROPHILS % (AUTO) 59.5 %; PLT - PLATELET COUNT 188 10^3/uL (130-450); RED BLOOD COUNT 4.68 10^6/uL (4.20-5.40); RED CELL DISTRIBUTION WIDTH 13.2 % (12.0-15.0); WHITE BLOOD COUNT 7.9 x10^3/uL (4.8-10.8)
[2023-02-13 11:59] LABS: ESTIMATED AVERAGE GLUCOSE 163 mg/dL (70-100); HEMOGLOBIN A1c% 7.3 % (4.27-6.07)
[2023-02-13 12:09] LABS: BUN - BLOOD UREA NITROGEN 14 mg/dL (6-20); CALCIUM 9.1 mg/dL (8.5-10.3); CARBON DIOXIDE - CO2 30 mmol/L (21-32); CHLORIDE 107 mmol/L (101-111); CHOL/HDL RATIO 2.7 (<4.4); CHOLESTEROL 175 mg/dL; CREATININE 0.9 mg/dL (0.4-1.0); GFR - MDRD 65 (>89); GLUCOSE 148 mg/dL (70-100); HDL CHOLESTEROL 66 mg/dL; LDL CHOLESTEROL,CALCULATED 86 mg/dL; LDL/HDL RATIO 1.3 (<4.4); POTASSIUM 3.5 mmol/L (3.5-5.0); SODIUM 141 mmol/L (135-145); TRIGLYCERIDES 115 mg/dL; VLDL CHOLESTEROL 23 mg/dL
== END 2023-02-13 07:20 | disposition home or self-care (01) ==
LOC: LAB.N 07:19
PROVIDERS: ATTEND Physician Assistant
DX: I10 Essential (primary) hypertension (principal); E78.5 Hyperlipidemia, unspecified
CPT/HCPCS: 36415; 80048; 80061; 83036; 83721; 85025

== ENCOUNTER 2023-04-17 13:02 | Outpatient (CLI) | payer MEDICAID | END 2023-04-17 13:03 | disposition critical access hospital (66) | LOC: EMS 13:02 | DX: S00.12XA Contusion of left eyelid and periocular area, initial encounter (principal); S60.512A Abrasion of left hand, initial encounter; W10.8XXA Fall (on) (from) other stairs and steps, initial encounter; Y92.811 Bus as the place of occurrence of the external cause | CPT/HCPCS: A0425; A0429; A0999 ==

== ENCOUNTER 2023-07-01 09:37 | Emergency (ER) | payer MEDICAID ==
[2023-07-01 09:56] VITALS: BP 212/110; O2SAT 98
--- NOTE | 2023-07-01 10:13 | ED Physician Documentation ---
PD HPI HEAD INJURY - Stated complaint Stated Complaint: HEAD PX - Chief complaint Chief Complaint: Neuro - History obtained from History obtained from: Patient - History of Present Illness Mechanism of head injury: No: Fell, Blow (she had a fall in March with some injury to head/neck/back. Had CT scans then that were okay. Some headache at the time for few days but then no problems for couple of months. Onset frontal GTZ to past 1-2 wks without new injury.) Timing - onset: How many weeks ago (1-2) Location of injury: Front Quality of pain: Aching, Dull Associated symptoms: No: AMS, Nausea / vomiting Symptoms worsen with: No: Light Contributing factors: No: Anticoagulated Similar symptoms before: Has not had sx before Review of Systems Constitutional: denies: Fever, Chills, Myalgias Eyes: denies: Decreased vision, Photophobia Ears: denies: Ear pain Nose: reports: Rhinorrhea / runny nose, Sinus pressure / pain. denies: Congestion Throat: denies: Sore throat Cardiac: denies: Chest pain / pressure Respiratory: denies: Dyspnea, Cough : reports: Other (she states she has been newly sexually active with new partner and is asking about control. 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 : None HEENT: None Psych: Depression, Schizophrenia Musculoskeletal: None Derm: None - Past Surgical History Past Surgical History: No - Present Medications Home Medications: Ambulatory Orders Medication Instructions Recorded Confirmed Cetirizine [ZyrTEC] 10 mg PO BID #20 tablet 07/01/23 dexAMETHasone [Decadron] 4 mg PO DAILY #10 tablet 07/01/23 - Allergies Allergies/Adverse Reactions: Allergies Allergy/AdvReac Type Severity Reaction Status Date / Time Penicillins Allergy Unknown UNKNOWN Verified 07/01/23 09:49 - Social History Does the pt smoke?: No Smoking Status: Never smoker Does the pt drink ETOH?: No Does the pt have substance abuse?: No - Immunizations Immunizations are current?: Yes PD ED PE NORMAL - Vitals Vital signs reviewed: Yes - General General: Alert and oriented X 3, No acute distress, Well developed/nourished - HEENT HEENT: PERRL, EOMI, Ears normal, Pharynx benign, Other (tender bilateral taoism areas without rash nor focal swelling. ) - Neck Neck: Supple, no meningeal sign, No bony TTP - Cardiac Cardiac: RRR, No murmur - Respiratory Respiratory: Clear bilaterally - Derm Derm: Normal color, Warm and dry, No rash - Neuro Neuro: Alert and oriented X 3, unit manager 2-12 intact, No motor deficit, No sensory deficit, Normal speech Results - Vitals Vitals: Vital Signs - 24 hr 07/01/23 09:45 Temperature 37.1 C Heart Rate 94 Respiratory 15 Rate Blood Pressure 212/110 H O2 Saturation 98 Oxygen O2 Source Room air - Labs Labs: Laboratory Tests 07/01/23 07/01/23 07/01/23 10:36 10:36 10:36 WBC 9.8 RBC 4.53 Hgb 13.4 Hct 41.9 MCV 92.5 MCH 29.6 MCHC 32.0 RDW 12.9 Plt Count 267 MPV 9.9 Neut # (Auto) 7.2 H Lymph # (Auto) 1.8 [place] # (Auto) 0.6 Eos # (Auto) 0.2 Baso # (Auto) 0.1 Absolute Nucleated RBC 0.00 Nucleated RBC % 0.0 ESR 45 H Sodium 139 Potassium 4.9 H Chloride 104 Carbon Dioxide 31 Anion Gap 4.0 L BUN 12 Creatinine 1.1 Estimated GFR (MDRD) 52 L Glucose 151 H Calcium 10.1 C-Reactive Protein < 0.5 FSH Serum HCG, Qual 07/01/23 07/01/23 10:36 10:36 WBC RBC Hgb Hct MCV MCH MCHC RDW Plt Count MPV Neut # (Auto) Lymph # (Auto) [place] # (Auto) Eos # (Auto) Baso # (Auto) Absolute Nucleated RBC Nucleated RBC % ESR Sodium Potassium Chloride Carbon Dioxide Anion Gap BUN Creatinine Estimated GFR (MDRD) Glucose Calcium C-Reactive Protein FSH 47.2 Serum HCG, Qual NEGATIVE - Rads (name of study) head CT Relevant Findings:: Prelim report reviewed (no acute pathology. Sinuses normal. ), EMP independent interpretation of test PD Medical Decision Making - ED course Complexity details: reviewed results (no intracranial pathology. CRP normal but ESR was elevated at 45. ), considered differential (frontal headache - consider functional such as migraine, sinusitis, mass effect, spont bleed. With the tenderness in temples bilaterally, consider vasculitis/arteritis. ), d/w hunter ent, d/w hospice consultant ([facility] information tech surgery - can treat with steroids and have pt see PCP later this week. If persisting tenderness, to contact him to arrange temporal artery biopsy, which he believes he would be able to do in office. ) ED course: I also talked with health information tech BOARD LAYER Dr. Weiss - who said we could add FSH to labs but would have pt make appt to discuss any hormone treatment/ control, with it very unlikely at the patient's age. Departure - Departure Disposition: Home, Self Care Clinical Impression: Frontal headache, Elevated erythrocyte sedimentation rate Condition: Stable Record reviewed to determine appropriate education?: Yes Instructions: ED Cephalgia Unspecified Follow-Up: Ryanne Jarvis DO [Provider Admit Priv/Credential] - Olivier Kirby MD [Provider Admit Priv/Credential] - Prescriptions: dexAMETHasone [Decadron] 4 mg PO DAILY #10 tablet Cetirizine [ZyrTEC] 10 mg PO BID #20 tablet Comments: The CT scan of your head did not show any abnormalities within the head/brain compartment and the sinuses appeared clear as well. The pain in the front part of your head may be related to sinus pressure or congestion but it does not look like a sinus infection. You do have some tenderness along the sides of the forehead which raises the possibility or concern for some inflammation through the blood vessels and soft tissue. We will treat this with a steroid anti-inflammatory initially as well as an antihistamine. Continue with Tylenol 500 to 650 mg 4 times daily for the pains. Follow-up with your primary care later this week in several days. At that point reevaluation as far as the headache and tenderness to decide if we want to go with a skin biopsy of the forehead. I did talk with our surgeon on-call Dr. Rosen who said your primary care can refer to his office for this if they still feel it is indicated. Regarding potential control, did talk with our or assistant on an given your age and such, it would be less common to prescribe oral contraceptives. They would want to have a discussion about it with you in the office. I provided their phone number and call for follow-up appointment for that. I did send your prescription to [facility] pharmacy. Forms: PCP List Discharge Date/Time: 07/01/23 12:38
[2023-07-01] MEDS: ACETAMINOPHEN 325 MG TABLET PO STA (10:38)
[2023-07-01] MEDS: CETIRIZINE 10 MG TABLET PO STA (10:39)
[2023-07-01] MEDS: dexAMETHasone 4 MG TABLET PO STA (10:39)
[2023-07-01 10:43] LABS: BASOPHILS # (AUTO) 0.1 10^3/uL (0.0-0.1); BASOPHILS % (AUTO) 0.7 %; EOSINOPHILS # (AUTO) 0.2 10^3/uL (0.0-0.7); EOSINOPHILS % (AUTO) 1.7 %; HCT - HEMATOCRIT 41.9 % (37.0-47.0); HGB - HEMOGLOBIN 13.4 g/dL (12.0-16.0); LYMPHOCYTES # (AUTO) 1.8 10^3/uL (1.5-3.5); LYMPHOCYTES % (AUTO) 17.9 %; MEAN CORPUSCULAR HEMOGLOBIN 29.6 pg (27.0-31.0); MEAN CORPUSCULAR VOLUME 92.5 fL (81.0-99.0); MEAN PLATELET VOLUME 9.9 fL (7.9-10.8); MONOCYTES # (AUTO) 0.6 10^3/uL (0.0-1.0); MONOCYTES % (AUTO) 5.6 %; NEUTROPHILS # (AUTO) 7.2 10^3/uL (1.5-6.6); NEUTROPHILS % (AUTO) 73.7 %; PLT - PLATELET COUNT 267 10^3/uL (130-450); RED BLOOD COUNT 4.53 10^6/uL (4.20-5.40); RED CELL DISTRIBUTION WIDTH 12.9 % (12.0-15.0); WHITE BLOOD COUNT 9.8 x10^3/uL (4.8-10.8)
[2023-07-01 11:03] LABS: HCG,QUALITATIVE BLOOD NEGATIVE
--- NOTE | 2023-07-01 11:11 | CT Report ---
PROCEDURE: HEAD WO INDICATIONS: frontal GTZ over a week TECHNIQUE: Noncontrast 4.5 mm thick angled axial sections acquired from the foramen magnum to the vertex. For r adiation dose reduction, the following was used: automated exposure control, adjustment of mA and/or kV according to patient size. COMPARISON: 04/17/2023 FINDINGS: Image quality: Study degraded by moderate patient motion artifact. CSF spaces: Basal cisterns are patent. No extra-axial fluid collections. Ventricles are normal in size and shape. Brain: No midline shift. No intracranial masses or hemorrhage. Duff-white matter interface is norm al. Skull and face: Calvarium and visualized facial bones are intact, without suspicious lesions. Sinuses: Visualized sinuses and mastoids are clear. IMPRESSION: Within the limitations of this examination, no acute intracranial pathology. No evidence for mass or mass effect. Reviewed by: Leonel Osuna MD on 07/01/2023 11:10 AM PDT Approved by: Leonel Osuna MD on 07/01/2023 11:10 AM PDT Station ID: [id number]
[2023-07-01 11:29] LABS: BUN - BLOOD UREA NITROGEN 12 mg/dL (6-20); CALCIUM 10.1 mg/dL (8.5-10.3); CARBON DIOXIDE - CO2 31 mmol/L (21-32); CHLORIDE 104 mmol/L (101-111); CREATININE 1.1 mg/dL (0.6-1.3); CRP - C-REACTIVE PROTEIN < 0.5 mg/dL (<0.5); GFR - MDRD 52 (>89); GLUCOSE 151 mg/dL (74-104); POTASSIUM 4.9 mmol/L (3.5-4.5); SODIUM 139 mmol/L (135-145)
== END 2023-07-01 12:38 | disposition home or self-care (01) ==
LOC: ED 09:37
DX: R51.9 Headache, unspecified (principal); R70.0 Elevated erythrocyte sedimentation rate; I10 Essential (primary) hypertension; E11.9 Type 2 diabetes mellitus without complications
CPT/HCPCS: 36415; 80048; 83001; 84703; 85025; 85651; 86140; 99284

== ENCOUNTER 2023-09-18 17:49 | Outpatient (CLI) | payer MEDICAID | END 2023-09-18 17:50 | disposition critical access hospital (66) | LOC: EMS 17:49 | DX: R11.2 Nausea with vomiting, unspecified (principal); R10.9 Unspecified abdominal pain; M54.2 Cervicalgia | CPT/HCPCS: A0425; A0428; A0999 ==

== ENCOUNTER 2023-09-18 18:01 | Emergency (ER) | payer MEDICAID ==
[2023-09-18 18:47] LABS: BASOPHILS # (AUTO) 0.1 10^3/uL (0.0-0.1); BASOPHILS % (AUTO) 0.6 %; EOSINOPHILS # (AUTO) 0.1 10^3/uL (0.0-0.7); EOSINOPHILS % (AUTO) 0.7 %; HCT - HEMATOCRIT 39.2 % (37.0-47.0); HGB - HEMOGLOBIN 13.2 g/dL (12.0-16.0); LYMPHOCYTES # (AUTO) 1.5 10^3/uL (1.5-3.5); LYMPHOCYTES % (AUTO) 14.5 %; MEAN CORPUSCULAR HEMOGLOBIN 28.7 pg (27.0-31.0); MEAN CORPUSCULAR HGB CONC 33.7 g/dL (32.0-36.0); MEAN CORPUSCULAR VOLUME 85.2 fL (81.0-99.0); MEAN PLATELET VOLUME 9.4 fL (7.9-10.8); MONOCYTES # (AUTO) 0.5 10^3/uL (0.0-1.0); MONOCYTES % (AUTO) 4.8 %; NEUTROPHILS # (AUTO) 7.9 10^3/uL (1.5-6.6); NEUTROPHILS % (AUTO) 78.8 %; PLT - PLATELET COUNT 301 10^3/uL (130-450); RED CELL DISTRIBUTION WIDTH 12.2 % (12.0-15.0)
[2023-09-18 19:04] LABS: ALBUMIN 4.4 g/dL (3.2-5.5); ALBUMIN/GLOBULIN RATIO 1.2 (1.0-2.2); BILIRUBIN,TOTAL 0.4 mg/dL (0.2-1.0); CALCIUM 9.7 mg/dL (8.5-10.3); CREATININE 1.2 mg/dL (0.6-1.3); TOTAL PROTEIN 8.1 g/dL (6.4-8.9)
[2023-09-18 19:36] LABS: BILIRUBIN,URINE NEGATIVE (NEGATIVE); CLARITY,URINE HAZY (CLEAR); GLUCOSE, URINE (UA) 250 mg/dL (NEGATIVE); KETONES,URINE (UA) NEGATIVE (NEGATIVE); LEUKOCYTE ESTERASE, URINE NEGATIVE (NEGATIVE); NITRITE,URINE NEGATIVE (NEGATIVE); OCCULT BLOOD,URINE NEGATIVE (NEGATIVE); PH,URINE 7.5 PH (5.0-7.5); PROTEIN,URINE 100 mg/dL (NEGATIVE); UROBILINOGEN,URINE 0.2 (NORMAL) E.U./dL (NORMAL)
[2023-09-18 19:51] LABS: BACTERIA,URINE Few /HPF (None Seen); RBC,URINE 0-5 /HPF (0-5); SQUAMOUS EPITHELIAL CELL,UR MANY Squamous (<= Few); WBC,URINE 0-3 /HPF (0-5)
--- NOTE | 2023-09-18 20:22 | ED Physician Documentation ---
PD HPI ABD PAIN - Stated complaint Stated Complaint: ABD PX - Chief complaint Chief Complaint: Abd Pain - History obtained from History obtained from: Patient, EMS - History of Present Illness Timing - onset: Today Timing - duration: Hours (5) Timing - details: Gradual onset Associated symptoms: Nausea, Vomiting. No: Fever, Hematemesis, Diarrhea, Constipation, Melena, Hematochezia, Dysuria, Hematuria - Additional information Additional information: Patient states she developed abdominal pain, nausea and vomiting after eating the sushi roll earlier today. No fevers. No chills. Nothing makes it better or worse. Review of Systems Constitutional: denies: Fever, Chills Respiratory: denies: Cough GI: reports: Nausea, Vomiting. 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 : None HEENT: None Psych: Depression, Schizophrenia Musculoskeletal: None Derm: None - Past Surgical History Past Surgical History: No - Present Medications Home Medications: Ambulatory Orders Medication Instructions Recorded Confirmed Cetirizine [ZyrTEC] 10 mg PO BID #20 tablet 07/01/23 dexAMETHasone [Decadron] 4 mg PO DAILY #10 tablet 07/01/23 - Allergies Allergies/Adverse Reactions: Allergies Allergy/AdvReac Type Severity Reaction Status Date / Time Penicillins Allergy Unknown UNKNOWN Verified 09/18/23 18:13 - Social History Does the pt smoke?: No Smoking Status: Never smoker Does the pt drink ETOH?: No Does the pt have substance abuse?: No - Immunizations Immunizations are current?: Yes PD ED PE NORMAL - Vitals Vital signs reviewed: Yes - General General: Alert and oriented X 3, No acute distress - HEENT HEENT: PERRL, Moist mucous membranes - Neck Neck: Supple, no meningeal sign - Cardiac Cardiac: RRR, Strong equal pulses - Respiratory Respiratory: No respiratory distress, Clear bilaterally - Abdomen Abdomen: Normal bowel sounds, Soft, Non distended, Other (Mild diffuse tenderness to palpation without peritoneal signs.) - Back Back: No CVA TTP, No spinal TTP - Derm Derm: Warm and dry - Extremities Extremities: No edema - Neuro Neuro: Alert and oriented X 3 - Psych Psych: Normal mood, Normal affect Results - Vitals Vitals: Vital Signs - 24 hr 09/18/23 09/18/23 09/18/23 18:09 18:35 20:13 Temperature 36.7 C 36.6 C Heart Rate 75 75 65 Respiratory 15 16 18 Rate Blood Pressure 174/88 H 144/80 H 133/75 H O2 Saturation 98 96 98 09/18/23 09/18/23 09/19/23 22:00 22:56 00:00 Temperature Heart Rate 57 L 62 95 Respiratory 18 14 18 Rate Blood Pressure 146/75 H 146/75 H 116/67 O2 Saturation 97 96 98 Oxygen O2 Source Room air - Labs Labs: Laboratory Tests 09/18/23 09/18/23 09/18/23 18:43 18:43 19:25 WBC 10.0 RBC 4.60 Hgb 13.2 Hct 39.2 MCV 85.2 MCH 28.7 MCHC 33.7 RDW 12.2 Plt Count 301 MPV 9.4 Neut # (Auto) 7.9 H Lymph # (Auto) 1.5 [place] # (Auto) 0.5 Eos # (Auto) 0.1 Baso # (Auto) 0.1 Absolute Nucleated RBC 0.00 Nucleated RBC % 0.0 Sodium 130 L Potassium 5.0 H Chloride 93 L Carbon Dioxide 30 Anion Gap 7.0 BUN 13 Creatinine 1.2 Estimated GFR (MDRD) 47 L Glucose 242 H Calcium 9.7 Total Bilirubin 0.4 AST 17 ALT 13 Alkaline Phosphatase 76 Total Protein 8.1 Albumin 4.4 Globulin 3.7 Albumin/Globulin Ratio 1.2 Lipase 30 Urine Color YELLOW Urine Clarity HAZY Urine pH 7.5 Ur Specific [place] 1.015 Urine Protein 100 H Urine Glucose (UA) 250 H Urine Ketones NEGATIVE Urine Occult Blood NEGATIVE Urine Nitrite NEGATIVE Urine Bilirubin NEGATIVE Urine Urobilinogen 0.2 (NORMAL) Ur Leukocyte Esterase NEGATIVE Urine RBC 0-5 Urine WBC 0-3 Ur Squamous Epith Cells MANY Squamous H Urine Bacteria Few Ur Microscopic Review INDICATED Urine Culture Comments NOT INDICATED - Rads (name of study) ct abd/pelvis Relevant Findings:: Final report received, See rad report PD Medical Decision Making - ED course Complexity details: reviewed results, re-evaluated patient, considered d ifferential, d/w patient ED course: Patient was given Toradol and Zofran, pain improved. Given IV fluids. Has mild hyperglycemia. She did complain of some continued abdominal pain so a CT scan was ordered. No acute findings on CT scan of the abdomen pelvis. Likely food poisoning. Tolerating p.o. without difficulty here. Afebrile. We will have her follow-up with her PCP for further care. Patient counseled regarding signs and symptoms for which I believe and urgent re-evaluation would be necessary. Patient with good understanding of and agreement to plan and is comfortable going home at this time This document was made in part using voice recognition software. While efforts are made to proofread this document, sound alike and grammatical errors may occur. Departure - Departure Disposition: 01 Home, Self Care Clinical Impression: Abdominal pain Diabetes mellitus with hyperglycemia Qualifiers: Diabetes mellitus type: type 2 Diabetes mellitus intermediate insulin use: without intermediate use Qualified Code(s): E11.65 - Type 2 diabetes mellitus with hyperglycemia Vomiting Qualifiers: Vomiting type: unspecified Nausea presence: with nausea Qualified Code(s): R11.2 - Nausea with vomiting, unspecified Condition: Good Instructions: ED Nausea Vomiting Follow-Up: your,doctor in 1 week [Other] Comments: The cause of your symptoms is unclear today. Please follow-up with your doctor for any further care. Your CT scan does not show any acute abnormalities today. Please return if you worsen. Forms: PCP List
[2023-09-18] MEDS ORDERED: SODIUM CHLORIDE 0.9% 1,000 ML IV STA (20:51)
[2023-09-18] MEDS ORDERED: ONDANSETRON 4 MG/2 ML VIAL IVP STA (20:51)
[2023-09-18] MEDS ORDERED: KETOROLAC 30 MG/ML VIAL IVP STA (20:51)
[2023-09-19 00:23] VITALS: O2SAT 98
[2023-09-19] MEDS ORDERED: iohexoL-300 100 ML VIAL IVP ONE (00:31)
--- NOTE | 2023-09-19 00:59 | CT Report ---
PROCEDURE: ABDOMEN/PELVIS W INDICATIONS: diffuse abd pain, vomiting CONTRAST: Omni 300 100ml TECHNIQUE: After the administration of IV contrast, 5 mm thick sections acquired from the diaphragms to the symp hysis. 5 mm thick coronal and sagittal reformats were acquired. For radiation dose reduction, the f ollowing was used: automated exposure control, adjustment of mA and/or kV according to patient size. COMPARISON: CT abdomen pelvis 09/22/2014 FINDINGS: Image quality: Excellent. Lung bases and heart: Unremarkable. Liver: Scattered low-attenuation foci are present suggestive of simple cysts. Gallbladder and biliary tree: Unremarkable Spleen: No splenomegaly. Pancreas: No pancreatic ductal dilation. Adrenals: No adrenal nodule. Kidneys and ureters: No hydronephrosis. No renal cystic lesion which requires follow up. No solid mas s. Bowel and peritoneum: No bowel distension. No pathologic free fluid. Lymph nodes: No central or retroperitoneal adenopathy. Vessels: No infrarenal aortic aneurysm. PELVIS Reproductive organs: Unremarkable. Bladder: No abnormal wall thickening, accounting for underdistension. Pelvic lymph nodes: No pelvic adenopathy by size criteria. Bones: No aggressive osseous abnormality. Other: No significant ventral or inguinal hernia. IMPRESSION: No acute intra-abdominal or pelvic process. Reviewed by: Adina Spencer MD on 09/19/2023 12:58 AM PST Approved by: Adina Spencer MD on 09/19/2023 12:58 AM PST Station ID: [id number]
[2023-09-19 01:24] VITALS: BP 160/76
== END 2023-09-19 01:19 | disposition home or self-care (01) ==
LOC: EDUNIT# → ED 18:01
DX: E11.65 Type 2 diabetes mellitus with hyperglycemia (principal); R11.2 Nausea with vomiting, unspecified
CPT/HCPCS: 36415; 74177; 80053; 81001; 83690; 85025; 96374; 99283; 99284; Q9967; 81003; 87086

== ENCOUNTER 2023-10-19 11:03 | Outpatient (CLI) | payer MEDICAID | END 2023-10-19 11:04 | disposition critical access hospital (66) | LOC: EMS 11:03 | DX: R11.2 Nausea with vomiting, unspecified (principal); R05.9 Cough, unspecified; R42 Dizziness and giddiness; R00.0 Tachycardia, unspecified | CPT/HCPCS: A0425; A0427; A0999 ==

== ENCOUNTER 2023-12-25 07:10 | Outpatient (CLI) | payer MEDICAID | END 2023-12-25 23:59 | disposition critical access hospital (66) | LOC: EMS 07:10 | DX: R52 Pain, unspecified (principal); Z74.09 Other reduced mobility | CPT/HCPCS: A0425; A0429; A0999 ==

== ENCOUNTER 2023-12-25 07:18 | Emergency (ER) | payer MEDICAID ==
--- NOTE | 2023-12-25 08:49 | ED Physician Documentation ---
PD HPI BACK PAIN - Stated complaint Stated Complaint: BODY PX - Chief complaint Chief Complaint: Back Pain - History obtained from History obtained from: Patient, EMS - History of Present Illness Timing - onset: How many days ago (Several days of diffuse myalgias and fatigue along with exacerbation of low back pain without any noted trauma. Feeling of chills without fever. Mild cough. No sore throat.) Timing - duration: Days (few) Timing - details: Abrupt onset, Still present Location: Lower, Right, Left Quality: Pain, Spasm, Aching Associated symptoms: Other (diffuse muscle and joint aches.). No: Fever, Weakness, Numbness Worsened by: Movement, Twisting Contributing factors: No: Lifting, Twisting, Trauma Recently seen: Emergency Dept (Walk In yesterday with a "shot" of medicine. No script.) Review of Systems Constitutional: reports: Chills, Myalgias, Fatigue. denies: Fever Nose: denies: Rhinorrhea / runny nose, Congestion Throat: denies: Sore throat Cardiac: reports: Chest pain / pressure (with cough and deep breathing.). 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 : None HEENT: None Psych: Depression, Schizophrenia Musculoskeletal: None Derm: None - Past Surgical History Past Surgical History: No - Present Medications Home Medications: Ambulatory Orders Medication Instructions Recorded Confirmed Albuterol Sulf [Ventolin Hfa 1 - 2 puffs INH Q4HR PRN #1 each 10/19/23 12/25/23 Inhaler] HYDROcod/ACETAM 5/325 [[place] 5/325] 1 ea PO Q6H PRN #10 tablet 10/19/23 12/25/23 Ondansetron Odt [Zofran] 4 mg TL Q6H PRN #10 tablet 10/19/23 12/25/23 Meloxicam [Mobic] 7.5 mg PO BID 10 Days #20 tablet 12/25/23 dexAMETHasone [Decadron] 4 mg PO DAILY #5 tablet 12/25/23 - Allergies Allergies/Adverse Reactions: Allergies Allergy/AdvReac Type Severity Reaction Status Date / Time Penicillins Allergy Unknown Respiratory Verified 12/25/23 07:26 codeine Allergy Respiratory Verified 12/25/23 07:26 - Social History Does the pt smoke?: No Smoking Status: Never smoker Does the pt drink ETOH?: No Does the pt have substance abuse?: No - Immunizations Immunizations are current?: Yes - POLST Patient has POLST: No PD ED PE NORMAL - Vitals Vital signs reviewed: Yes - General General: Alert and oriented X 3, Well developed/nourished, Other (appears uncomfortable with movement of arms and legs and with palpation diffusely. No nodes, redness, rash. ) - HEENT HEENT: Ears normal, Moist mucous membranes, Pharynx benign - Neck Neck: Supple, no meningeal sign, No adenopathy - Cardiac Cardiac: RRR (mild tachycardia), No murmur - Respiratory Respiratory: No respiratory distress, Clear bilaterally - Abdomen Abdomen: Normal bowel sounds, Soft, Non distended, No organomegaly, Other (mild general tenderness winces with palpation, but no muscle guarding nor percussion tender. ) - Derm Derm: Normal color, Warm and dry, No rash - Extremities Extremities: No edema, No calf tenderness / cord Results - Vitals Vitals: Vital Signs - 24 hr 12/25/23 12/25/23 10:38 10:48 Temperature 36.5 C Heart Rate 82 82 Respiratory 15 15 Rate Blood Pressure 144/70 H 144/70 H O2 Saturation 99 99 Oxygen O2 Source Room air - Labs Labs: Laboratory Tests 12/25/23 12/25/23 12/25/23 09:32 09:32 10:00 ESR 63 H Sodium 132 L Potassium 4.8 H Chloride 97 L Carbon Dioxide 26 Anion Gap 9.0 BUN 15 Creatinine 1.2 Estimated GFR (MDRD) 47 L Glucose 238 H Calcium 9.4 Magnesium 1.7 Total Bilirubin 1.1 H AST 12 ALT 7 L Alkaline Phosphatase 74 Total Creatine Kinase 190 C-Reactive Protein 35.1 H Total Protein 8.1 Albumin 3.7 Globulin 4.4 H Albumin/Globulin Ratio 0.8 L Lipase 26 Nasal Adenovirus (PCR) NOT DETECTED Nasal B. parapertussis DNA (PCR) NOT DETECTED Nasal Coronavir 229E PCR NOT DETECTED Nasal Coronavir HKU1 PCR NOT DETECTED Nasal Coronavir NL63 PCR NOT DETECTED Nasal Coronavir OC43 PCR NOT DETECTED Nasal Enterovir/Rhinovir PCR NOT DETECTED Nasal Influenza B PCR NOT DETECTED Nasal Influenza A PCR NOT DETECTED Nasal Parainfluen 1 PCR NOT DETECTED Nasal Parainfluen 2 PCR NOT DETECTED Nasal Parainfluen 3 PCR NOT DETECTED Nasal Parainfluen 4 PCR NOT DETECTED Nasal RSV (PCR) NOT DETECTED Nasal B.pertussis DNA PCR NOT DETECTED Nasal C.pneumoniae (PCR) NOT DETECTED [place] Human Metapneumo PCR NOT DETECTED Nasal M.pneumoniae (PCR) NOT DETECTED Nasal SARS-CoV-2 (PCR) NOT DETECTED Rheumatoid Factor 12/25/23 10:48 ESR Sodium Potassium Chloride Carbon Dioxide Anion Gap BUN Creatinine Estimated GFR (MDRD) Glucose Calcium Magnesium Total Bilirubin AST ALT Alkaline Phosphatase Total Creatine Kinase C-Reactive Protein Total Protein Albumin Globulin Albumin/Globulin Ratio Lipase Nasal Adenovirus (PCR) Nasal B. parapertussis DNA (PCR) Nasal Coronavir 229E PCR Nasal Coronavir HKU1 PCR Nasal Coronavir NL63 PCR Nasal Coronavir OC43 PCR Nasal Enterovir/Rhinovir PCR Nasal Influenza B PCR Nasal Influenza A PCR Nasal Parainfluen 1 PCR Nasal Parainfluen 2 PCR Nasal Parainfluen 3 PCR Nasal Parainfluen 4 PCR Nasal RSV (PCR) Nasal B.pertussis DNA PCR Nasal C.pneumoniae (PCR) [place] Human Metapneumo PCR Nasal M.pneumoniae (PCR) Nasal SARS-CoV-2 (PCR) Rheumatoid Factor NEGATIVE - Rads (name of study) chest xray Relevant Findings:: Prelim report reviewed, EMP independent interpretation of test (no acute process) PD Medical Decision Making - ED course Complexity details: reviewed results (Chest x-ray and respiratory panel are normal. White count is normal. Her CRP is fairly elevated suggesting inflammatory process. I did send off labs for screening on lupus and rheumatoid. These are pending. More likely viral type illness.), considered differential (General body aches and joint aches with a feeling of fatigue and some mild cough seems likely consistent with a viral illness. Consideration would be autoimmune as well. Medication list does not include those associated with lupus-like symptoms or side effects.), d/w patient Departure - Departure Disposition: 01 Home, Self Care Clinical Impression: Myalgia, Body aches Condition: Stable Record reviewed to determine appropriate education?: Yes Prescriptions: dexAMETHasone [Decadron] 4 mg PO DAILY #5 tablet Meloxicam [Mobic] 7.5 mg PO BID 10 Days #20 tablet Comments: It is not clear the cause of your body aches. Your chest x-ray is clear without any signs of pneumonia. You may have a viral type illness and that can be activating of some diffuse bodyaches. We did do some simple blood test and there is no signs of muscle breakdown and your basic electrolytes and kidney function are good. An inflammatory marker called the CRP is fairly elevated. This does raise the question of whether there could be some immune inflammation such as rheumatoid or such. I did order some other blood test to screen for some of those. We will not get those results back today. Follow-up with your primary care regarding follow-up on blood tests ordered today. This should result in 2 or 3 days. Meanwhile we will go with some anti-inflammatories to help with your symptoms. Initially Decadron steroid anti-inflammatory daily for 5 days and then after that change to the meloxicam twice daily with food for 7 to 10 days. Add Tylenol every 4-6 hours if needed for pains. Continue your other usual medicines. I sent your prescriptions to your preferred pharmacy. Discharge Date/Time: 12/25/23 11:02
[2023-12-25] MEDS: ACETAMINOPHEN 500 MG TABLET PO STA (09:34)
[2023-12-25] MEDS: KETOROLAC 30 MG/ML VIAL IM STA (09:35)
--- NOTE | 2023-12-25 09:36 | XRAY Report ---
PROCEDURE: Chest 1V INDICATIONS: cough/dyspnea TECHNIQUE: One view of the chest was acquired. COMPARISON: 10/19/2023 FINDINGS: Surgical changes and devices: None. Lungs and pleura: No pleural effusions or pneumothorax. Lungs are clear. Mediastinum: Mediastinal contours appear normal. Heart size is normal. Bones and chest wall: No suspicious bony lesions. Overlying soft tissues appear unremarkable. IMPRESSION: No acute cardiopulmonary process. Reviewed by: Alfredo Liang MD on 12/25/2023 9:35 AM PDT Approved by: Alfredo Liang MD on 12/25/2023 9:35 AM PDT Station ID: [id number]
[2023-12-25 09:51] LABS: MAGNESIUM 1.7 mg/dL (1.7-2.3)
[2023-12-25 09:57] LABS: ALBUMIN 3.7 g/dL (3.2-5.5); ALBUMIN/GLOBULIN RATIO 0.8 (1.0-2.2); BILIRUBIN,TOTAL 1.1 mg/dL (0.2-1.0); CALCIUM 9.4 mg/dL (8.5-10.3); CREATININE 1.2 mg/dL (0.6-1.3); POTASSIUM 4.8 mmol/L (3.5-4.5); TOTAL PROTEIN 8.1 g/dL (6.4-8.9)
[2023-12-25 09:59] LABS: CRP - C-REACTIVE PROTEIN 35.1 mg/dL (<0.5)
[2023-12-25 10:39] VITALS: BP 144/70; O2SAT 99
[2023-12-25] MEDS: dexAMETHasone 4 MG TABLET PO STA (10:41)
[2023-12-25 11:14] LABS: RHEUMATOID FACTOR NEGATIVE (Negative)
[2023-12-25 12:05] LABS: B. PARAPERTUSSIS- RESP PCR PAN NOT DETECTED; B. PERTUSSIS- RESP PCR PANEL NOT DETECTED; C. PNEUMONIAE- RESP PCR PANEL NOT DETECTED; CORONAVIRUS 229E-RESP PCR NOT DETECTED; CORONAVIRUS HKU1-RESP PCR NOT DETECTED; CORONAVIRUS NL63-RESP PCR NOT DETECTED; CORONAVIRUS OC43-RESP PCR NOT DETECTED; HUMAN METAPNEUMOVIRUS NOT DETECTED; INFLUENZA A- RESP PCR PANEL NOT DETECTED; INFLUENZA B - RESP PCR PANEL NOT DETECTED; M. PNEUMONIAE- RESP PCR PANEL NOT DETECTED; PARAINFLUENZA VIRUS 1 NOT DETECTED; PARAINFLUENZA VIRUS 2 NOT DETECTED; PARAINFLUENZA VIRUS 3 NOT DETECTED; PARAINFLUENZA VIRUS 4 NOT DETECTED; RHINOVIRUS/ENTEROVIRUS NOT DETECTED; RSV- RESP PCR PANEL NOT DETECTED; SARS-CoV-2 -RESP PCR PANEL NOT DETECTED
== END 2023-12-25 11:02 | disposition home or self-care (01) ==
LOC: EDUNIT# → ED 07:18
DX: M79.10 Myalgia, unspecified site (principal); R52 Pain, unspecified
CPT/HCPCS: 36415; 71045; 80053; 82550; 83690; 83735; 85651; 86140; 86225; 86430; 87633; 96372; 99284; A9270; J8540

== ENCOUNTER 2023-12-26 07:10 | Outpatient (CLI) | payer MEDICAID | END 2023-12-26 23:59 | disposition critical access hospital (66) | LOC: EMS 07:10 | DX: R07.9 Chest pain, unspecified (principal); R11.0 Nausea; M79.602 Pain in left arm; M79.601 Pain in right arm; R10.12 Left upper quadrant pain; R10.32 Left lower quadrant pain; M79.605 Pain in left leg; M79.604 Pain in right leg | CPT/HCPCS: A0425; A0429; A0999 ==

== ENCOUNTER 2023-12-26 07:20 | Emergency (ER) | payer MEDICAID ==
--- NOTE | 2023-12-26 07:25 | ED Physician Documentation ---
PD HPI CHEST PAIN - Stated complaint Stated Complaint: CP/ABD PX/NAUSEA - History obtained from History obtained from: Patient, EMS - History of Present Illness Timing - onset: How many days ago (2-3) Timing - onset during: Rest Timing - duration: Days (few days of marked general muscle and joint pains, with mild cough yesterday that has increased today along with dyspnea left chest pain.) Timing - details: Gradual onset, Still present Quality: Aching, Pain Location: Left chest Radiation: Back Worsened by: Movement, Other (cough) Associated symptoms: Nausea, Vomiting, Cough. No: Shortness of air, Feeling faint / dizzy Recently seen: Emergency Dept (yesterday for more predominant body aches, weakness, fatigue, with just some cough and nausea at the time.) Review of Systems Constitutional: reports: Chills, Myalgias, Fatigue. denies: Fever Nose: denies: Rhinorrhea / runny nose, Congestion Throat: denies: Sore throat Cardiac: reports: Chest pain / pressure (today left chest/pectoral area, with movement and cough.). denies: Palpitations, Pedal edema, Calf pain Respiratory: reports: Dyspnea, Cough. 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 : None HEENT: None Psych: Depression, Schizophrenia Musculoskeletal: None Derm: None - Past Surgical History Past Surgical History: No - Present Medications Home Medications: Ambulatory Orders Medication Instructions Recorded Confirmed Albuterol Sulf [Ventolin Hfa 1 - 2 puffs INH Q4HR PRN #1 each 10/19/23 12/25/23 Inhaler] HYDROcod/ACETAM 5/325 [[place] 5/325] 1 ea PO Q6H PRN #10 tablet 10/19/23 12/25/23 Ondansetron Odt [Zofran] 4 mg TL Q6H PRN #10 tablet 10/19/23 12/25/23 Meloxicam [Mobic] 7.5 mg PO BID 10 Days #20 tablet 12/25/23 dexAMETHasone [Decadron] 4 mg PO DAILY #5 tablet 12/25/23 Albuterol Sulf [Ventolin Hfa 2 - 3 puffs INH Q4HR PRN #1 each 12/26/23 Inhaler] Famotidine [Pepcid] 20 mg PO DAILY #20 tablet 12/26/23 Ondansetron Odt [Zofran] 4 mg TL Q6H PRN #10 tablet 12/26/23 Promethazine Supp [Phenergan Supp] 25 mg NV Q6H PRN #10 supp 12/26/23 - Allergies Allergies/Adverse Reactions: Allergies Allergy/AdvReac Type Severity Reaction Status Date / Time Penicillins Allergy Unknown Respiratory Verified 12/26/23 07:35 codeine Allergy Respiratory Verified 12/26/23 07:35 - Social History Does the pt smoke?: No Smoking Status: Never smoker Does the pt drink ETOH?: No Does the pt have substance abuse?: No - Immunizations Immunizations are current?: Yes - POLST Patient has POLST: No PD ED PE NORMAL - Vitals Vital signs reviewed: Yes - General General: Alert and oriented X 3, Well developed/nourished, Other (appears uncomfortable with hodling emesis bag due to nausea. Having diffuse aches still c/w prior ED visit yesterday, but now also left chest pain. ) - HEENT HEENT: Moist mucous membranes, Pharynx benign - Neck Neck: Supple, no meningeal sign, No adenopathy - Cardiac Cardiac: No: RRR (regular but tachycardic. ) - Respiratory Respiratory: No respiratory distress, Clear bilaterally - Abdomen Abdomen: Normal bowel sounds, Soft, Non distended, No organomegaly, Other (tender epigatric area and RUQ with some guarding but no percussion nor rebound. ) - Back Back: No CVA TTP - Derm Derm: Warm and dry. No: Normal color (mld pallor. ) - Extremities Extremities: No edema, No calf tenderness / cord - Neuro Neuro: Alert and oriented X 3, No motor deficit, Normal speech Results - Vitals Vitals: Vital Signs - 24 hr 12/26/23 12/26/23 12/26/23 07:28 07:50 08:42 Temperature 36.2 C L 36.3 C L Heart Rate 102 H 89 105 H Respiratory 22 17 22 Rate Blood Pressure 181/92 H 165/88 H O2 Saturation 97 98 12/26/23 12/26/23 12/26/23 10:28 13:09 15:00 Temperature 35.6 C L 36.4 C L Heart Rate 88 91 64 Respiratory 24 18 22 Rate Blood Pressure 176/80 H 137/64 H 172/82 H O2 Saturation 96 97 95 12/26/23 15:39 Temperature Heart Rate 73 Respiratory 20 Rate Blood Pressure 170/79 H O2 Saturation 97 Oxygen O2 Source Room air - EKG (time done) 07:59 EKG releavant findings:: EKG personally interpreted by author of this note. Relevant findings are: Rate: Rate (enter#) (92) Rhythm: NSR [place]: Normal Intervals: Normal NV QRS: Normal, LVH Ischemia: Normal ST segments. No: ST elevation c/w ischemia, ST depression - Labs Labs: Laboratory Tests 12/26/23 12/26/23 12/26/23 07:43 07:43 07:43 WBC RBC Hgb Hct MCV MCH MCHC RDW Plt Count MPV Neut # (Auto) Lymph # (Auto) [place] # (Auto) Eos # (Auto) Baso # (Auto) Absolute Nucleated RBC Nucleated RBC % Sodium 132 L Potassium 4.4 Chloride 98 L Carbon Dioxide 24 Anion Gap 10.0 BUN 34 H Creatinine 1.2 Estimated GFR (MDRD) 47 L Glucose 343 H Calcium 9.7 Total Bilirubin Direct Bilirubin AST ALT Alkaline Phosphatase Troponin I High Sens 47.4 H* C-Reactive Protein 36.3 H B-Natriuretic Peptide 111 H Total Protein Albumin Globulin Lipase Nasal Adenovirus (PCR) Nasal B. parapertussis DNA (PCR) Nasal Coronavir 229E PCR Nasal Coronavir HKU1 PCR Nasal Coronavir NL63 PCR Nasal Coronavir OC43 PCR Nasal Enterovir/Rhinovir PCR Nasal Influenza B PCR Nasal Influenza A PCR Nasal Parainfluen 1 PCR Nasal Parainfluen 2 PCR Nasal Parainfluen 3 PCR Nasal Parainfluen 4 PCR Nasal RSV (PCR) Nasal B.pertussis DNA PCR Nasal C.pneumoniae (PCR) [place] Human Metapneumo PCR Nasal M.pneumoniae (PCR) Nasal SARS-CoV-2 (PCR) 12/26/23 12/26/23 12/26/23 07:43 09:36 13:14 WBC 19.5 H RBC 3.63 L Hgb 10.3 L Hct 31.5 L MCV 86.8 MCH 28.4 MCHC 32.7 RDW 12.7 Plt Count 286 MPV 10.2 Neut # (Auto) 17.9 H Lymph # (Auto) 0.8 L [place] # (Auto) 0.7 Eos # (Auto) 0.0 Baso # (Auto) 0.0 Absolute Nucleated RBC 0.00 Nucleated RBC % 0.0 Sodium Potassium Chloride Carbon Dioxide Anion Gap BUN Creatinine Estimated GFR (MDRD) Glucose Calcium Total Bilirubin Direct Bilirubin AST ALT Alkaline Phosphatase Troponin I High Sens 42.3 H* C-Reactive Protein B-Natriuretic Peptide Total Protein Albumin Globulin Lipase Nasal Adenovirus (PCR) NOT DETECTED Nasal B. parapertussis DNA (PCR) NOT DETECTED Nasal Coronavir 229E PCR NOT DETECTED Nasal Coronavir HKU1 PCR NOT DETECTED Nasal Coronavir NL63 PCR NOT DETECTED Nasal Coronavir OC43 PCR NOT DETECTED Nasal Enterovir/Rhinovir PCR NOT DETECTED Nasal Influenza B PCR NOT DETECTED Nasal Influenza A PCR NOT DETECTED Nasal Parainfluen 1 PCR NOT DETECTED Nasal Parainfluen 2 PCR NOT DETECTED Nasal Parainfluen 3 PCR NOT DETECTED Nasal Parainfluen 4 PCR NOT DETECTED Nasal RSV (PCR) NOT DETECTED Nasal B.pertussis DNA PCR NOT DETECTED Nasal C.pneumoniae (PCR) NOT DETECTED [place] Human Metapneumo PCR NOT DETECTED Nasal M.pneumoniae (PCR) NOT DETECTED Nasal SARS-CoV-2 (PCR) NOT DETECTED 12/26/23 13:14 WBC RBC Hgb Hct MCV MCH MCHC RDW Plt Count MPV Neut # (Auto) Lymph # (Auto) [place] # (Auto) Eos # (Auto) Baso # (Auto) Absolute Nucleated RBC Nucleated RBC % Sodium Potassium Chloride Carbon Dioxide Anion Gap BUN Creatinine Estimated GFR (MDRD) Glucose Calcium Total Bilirubin 0.3 Direct Bilirubin 0.10 AST 8 L ALT 7 L Alkaline Phosphatase 72 Troponin I High Sens C-Reactive Protein B-Natriuretic Peptide Total Protein 7.2 Albumin 3.2 Globulin 4.0 Lipase 11 Nasal Adenovirus (PCR) Nasal B. parapertussis DNA (PCR) Nasal Coronavir 229E PCR Nasal Coronavir HKU1 PCR Nasal Coronavir NL63 PCR Nasal Coronavir OC43 PCR Nasal Enterovir/Rhinovir PCR Nasal Influenza B PCR Nasal Influenza A PCR Nasal Parainfluen 1 PCR Nasal Parainfluen 2 PCR Nasal Parainfluen 3 PCR Nasal Parainfluen 4 PCR Nasal RSV (PCR) Nasal B.pertussis DNA PCR Nasal C.pneumoniae (PCR) [place] Human Metapneumo PCR Nasal M.pneumoniae (PCR) Nasal SARS-CoV-2 (PCR) - Rads (name of study) chest xray Relevant Findings:: Prelim report reviewed, EMP independent interpretation of test (no acute cardiopulmonary process.) ruq abd US Relevant Findings:: Prelim report reviewed, Other (US Tech: normal GB and CBD. ) PD Medical Decision Making - ED course Complexity details: reviewed results, re-evaluated patient (Pt with return of nausea snd active vomiting several times in ED. Given repeat dose IV meds with improvement for awhile. Subsequently was not voiting but still quite nauseated with attempted PO intake even small fluids. I felt not improved enough for home self care of meds. ), considered differential (Several days of diffuse arthralgias and myalgias associated with weakness. Had a minimal cough yesterday when seen here in the ER. Increased cough today with some chest pain complaint. Also having nausea and repetitive vomiting with upset stomach.), d/w patient, d/w qa consultant (Hospitalist who came to ED to eval pt but felt not meeting admission need. See hospitalist consult note. ) Reviewed Lab Results: several labs are abnormal: elevated WBC of 19K, which is higher than yesterday's 16K. Has very elevated CRP of 36, similar to yesterday 35. Normal LFTs. Lipase okay yesterday. LFTs normal. She has chest pain today along with cough and some dyspnea. PERC negative. No calf pain nor edema, and has been gradual onset, along with diffuse body pains, nausea and today is vomiting. Concerning was initial trop elevation 47 but repeat is actually down some to 41. This is likely more suggestive to me, in conjunction with her general viral/flulike symptoms and cough, to be perhaps some inflammatory pericarditis or early myocarditis. The general symptoms are congruent mainly with likely autimmune inflammatory process, or much more likely infectious/viral. Elevated WBC but no local site for apparent bacterial infection. No history of IVDU, and does not have skin lesions/abscesses, recent dental procedures, nor actual fevers to suggest bacteremia. She does now have more GI symptoms with repetitive vomiting, and noted with that by nursing was mild coffee ground appearance c/w now gatritis from vomiting, which makes persistence more likely and presume harder to resolve with just antiemetics. Given H2 sandro as well. She was prescribed decadron med yesterday, which I would still have her continue. Concern for inflammatory component. Add meds for nasuea. She had not gotten scripts from yeterday from pharmacy as yet. I sent the new ones to same pharmacy. She says will get them today. ED course: The patient is interactive well and answers questions appropriately. Somewhat of a blunted affect with history of schizophrenia. She is not on any new medications. She is having active vomiting here with some coffee-ground emesis. This would be consistent with some gastritis. She is having some upper abdominal tenderness. Basic chemistry labs did not show any obvious electrolyte abnormalities. The patient did have repetitive vomiting with some coffee-ground material here. Some upper abdominal discomfort. Ultrasound did not show any gallbladder problems. Labs did not show any elevation of lipase. She did have some chest discomfort associated with the cough and trouble breathing. A troponin was done which showed some elevation above baseline but a repeat showed it to be flat so not indicating acute injury per se. Given the general myalgias and other symptoms she has had, I would consider the idea of viral inflammation perhaps. I would treat with some anti-inflammatories. I had consideration of having the patient in the hospital due to 3 courses of medications for the nausea was still nausea upon attempted oral intake here. The vomiting she had had here in the department has stopped at this point. I talked with the hospitalist who came and assessed the patient and felt she did not meet criteria for hospitalization. We will try discharging the patient home with a combination of oral and suppository antiemetics as well as some acid reducing medicine. We can still continue with the idea of anti-inflammatories which had been prescribed yesterday and are at the pharmacy. I will add the new medication today including an inhaler to help with her breathing and cough. Departure - Departure Disposition: 01 Home, Self Care Clinical Impression: Flu-like symptoms, Intractable vomiting with nausea, Elevated troponin I measurement Cough Qualifiers: Cough type: acute Qualified Code(s): R05.1 - Acute cough Chest pain Qualifiers: Chest pain type: unspecified Qualified Code(s): R07.9 - Chest pain, unspecified Gastritis Qualifiers: Gastritis type: unspecified gastritis Chronicity: acute Gastritis bleeding: with bleeding Qualified Code(s): K29.01 - Acute gastritis with bleeding Condition: Stable Record reviewed to determine appropriate education?: Yes Prescriptions: Albuterol Sulf [Ventolin Hfa Inhaler] 2 - 3 puffs INH Q4HR PRN #1 each PRN Reason: Shortness Of Air/Wheezing Famotidine [Pepcid] 20 mg PO DAILY #20 tablet Promethazine Supp [Phenergan Supp] 25 mg NV Q6H PRN #10 supp PRN Reason: Nausea / Vomiting Ondansetron Odt [Zofran] 4 mg TL Q6H PRN #10 tablet PRN Reason: Nausea / Vomiting Comments: You have been given fluids here to help hydrate. You are given several medications for nausea. Hopefully this will have settled it down. Your stomach is likely irritated so we did give some acid reducing medicine as well. I sent prescriptions to your pharmacy for some acid reducing medicine as well as antiemetics/antivomiting medication both sublingual dissolving tablet and suppository. This would likely keep your nausea and vomiting under control. I am presuming you have a viral type illness with your general symptoms as well as the nausea and vomiting. Hopefully this will improve over several more days. You can use the inhaler 2 to 3 puffs 4 times daily to help with breathing and cough. Add Tylenol every 4-6 hours if needed for pains. Return as needed. Forms: PCP List Discharge Date/Time: 12/26/23 15:39
[2023-12-26] MEDS: KETOROLAC 15 MG/ML VIAL IVP STA (07:40)
[2023-12-26] MEDS: ALBUTEROL 1 PUFF INH STA (07:44)
[2023-12-26 08:02] LABS: CALCIUM 9.7 mg/dL (8.5-10.3); CREATININE 1.2 mg/dL (0.6-1.3); POTASSIUM 4.4 mmol/L (3.5-4.5)
--- NOTE | 2023-12-26 08:05 | XRAY Report ---
PROCEDURE: Chest 1V INDICATIONS: chest pain TECHNIQUE: One view of the chest was acquired. COMPARISON: 12/17/2023. FINDINGS: Surgical changes and devices: None. Lungs and pleura: No pleural effusions or pneumothorax. Lungs are clear. Mediastinum: Mediastinal contours appear normal. Heart size is prominent. Bones and chest wall: No suspicious bony lesions. Overlying soft tissues appear unremarkable. IMPRESSION: No acute cardiopulmonary process. Reviewed by: Surya Urbina MD on 12/26/2023 8:04 AM PDT Approved by: Surya Urbina MD on 12/26/2023 8:04 AM PDT Station ID: [id number]
[2023-12-26 08:09] LABS: TROPONIN I HIGH SENSITIVITY 47.4 ng/L (2.3-14.8)
[2023-12-26] MEDS: ACETAMINOPHEN 325 MG TABLET PO STA (09:27)
[2023-12-26] MEDS: HYDROmorphone 1 MG/ML CARPUJECT IVP STA (09:27)
[2023-12-26] MEDS: SODIUM CHLORIDE 0.9% 1,000 ML IV STA (09:28)
[2023-12-26 09:32] LABS: B. PARAPERTUSSIS- RESP PCR PAN NOT DETECTED; B. PERTUSSIS- RESP PCR PANEL NOT DETECTED; C. PNEUMONIAE- RESP PCR PANEL NOT DETECTED; CORONAVIRUS 229E-RESP PCR NOT DETECTED; CORONAVIRUS HKU1-RESP PCR NOT DETECTED; CORONAVIRUS NL63-RESP PCR NOT DETECTED; CORONAVIRUS OC43-RESP PCR NOT DETECTED; HUMAN METAPNEUMOVIRUS NOT DETECTED; INFLUENZA A- RESP PCR PANEL NOT DETECTED; INFLUENZA B - RESP PCR PANEL NOT DETECTED; M. PNEUMONIAE- RESP PCR PANEL NOT DETECTED; PARAINFLUENZA VIRUS 1 NOT DETECTED; PARAINFLUENZA VIRUS 2 NOT DETECTED; PARAINFLUENZA VIRUS 3 NOT DETECTED; PARAINFLUENZA VIRUS 4 NOT DETECTED; RHINOVIRUS/ENTEROVIRUS NOT DETECTED; RSV- RESP PCR PANEL NOT DETECTED; SARS-CoV-2 -RESP PCR PANEL NOT DETECTED
[2023-12-26] MEDS: FAMOTIDINE 20 MG/2 ML VIAL IVP STA (10:22)
[2023-12-26] MEDS: ONDANSETRON 4 MG/2 ML VIAL IVP STA ×2 (10:22→13:04)
[2023-12-26] MEDS: MAG HYDROX/AL HYDROX/SIMETH 30 ML UDC PO STA (10:50)
[2023-12-26] MEDS: DROPERIDOL 5 MG/2 ML VIAL IVP STA (11:02)
--- NOTE | 2023-12-26 12:50 | Ultrasound Report ---
PROCEDURE: Abdomen Limited INDICATIONS: vomiting/ right upper pain TECHNIQUE: Real-time focused scanning was performed of the abdomen, with image documentation. COMPARISONS: CT abdomen pelvis 09/18/2023. FINDINGS: Liver: Liver is normal in size and normal echotexture. There is a 1.5 cm simple appearing cyst in th e left lobe. Gallbladder: Unremarkable. Biliary ducts: Intrahepatic bile ducts are non-dilated. Extrahepatic bile duct caliber measures 4.5 mm. Normal is 6-7 mm or less in diameter, or 10 mm or less post-cholecystectomy. Pancreas: Visualized portions of the pancreas are sonographically normal. Right kidney: Normal in size and echotexture. Right kidney measures 9.8 cm long. No hydronephrosis o r nephrolithiasis. No solid masses. No complex renal cystic lesions which require follow-up. Aorta: Visualized aorta is normal in caliber at less than 3 cm. IVC: Intrahepatic inferior vena cava is patent. Miscellaneous: No free abdominal fluid. IMPRESSION: 1.No cause for patient's pain is identified. 2.Gallbladder is normal in appearance. Reviewed by: Surya Urbina MD on 12/26/2023 12:48 PM PDT Approved by: Surya Urbina MD on 12/26/2023 12:48 PM PDT Station ID: [id number]
[2023-12-26 13:19] LABS: BASOPHILS % (AUTO) 0.2 %; HCT - HEMATOCRIT 31.5 % (37.0-47.0); HGB - HEMOGLOBIN 10.3 g/dL (12.0-16.0); LYMPHOCYTES # (AUTO) 0.8 10^3/uL (1.5-3.5); MEAN CORPUSCULAR HEMOGLOBIN 28.4 pg (27.0-31.0); MEAN CORPUSCULAR HGB CONC 32.7 g/dL (32.0-36.0); MEAN CORPUSCULAR VOLUME 86.8 fL (81.0-99.0); MEAN PLATELET VOLUME 10.2 fL (7.9-10.8); MONOCYTES # (AUTO) 0.7 10^3/uL (0.0-1.0); MONOCYTES % (AUTO) 3.6 %; NEUTROPHILS # (AUTO) 17.9 10^3/uL (1.5-6.6); NEUTROPHILS % (AUTO) 91.5 %; PLT - PLATELET COUNT 286 10^3/uL (130-450); RED BLOOD COUNT 3.63 10^6/uL (4.20-5.40); RED CELL DISTRIBUTION WIDTH 12.7 % (12.0-15.0); WHITE BLOOD COUNT 19.5 x10^3/uL (4.8-10.8)
[2023-12-26 13:33] LABS: ALBUMIN 3.2 g/dL (3.2-5.5); BILIRUBIN,DIRECT 0.1 mg/dL (0.03-0.18); BILIRUBIN,TOTAL 0.3 mg/dL (0.2-1.0); TOTAL PROTEIN 7.2 g/dL (6.4-8.9)
[2023-12-26 15:43] VITALS: BP 170/79; O2SAT 97
== END 2023-12-26 15:39 | disposition home or self-care (01) ==
LOC: EDUNIT# → ED 07:20
DX: R05.1 Acute cough (principal); R07.9 Chest pain, unspecified; K29.01 Acute gastritis with bleeding; R11.2 Nausea with vomiting, unspecified; R79.89 Other specified abnormal findings of blood chemistry; I10 Essential (primary) hypertension; E11.9 Type 2 diabetes mellitus without complications; Z79.899 Other long term (current) drug therapy
CPT/HCPCS: 36415; 71045; 76705; 80048; 80076; 83690; 83880; 84484; 85025; 86140; 87633; 93005; 94640; 94664; 96374; 96375; 99285; A9270; J1170

== ENCOUNTER 2024-01-24 05:38 | Outpatient (CLI) | payer MEDICAID | END 2024-01-24 23:59 | disposition critical access hospital (66) | LOC: EMS 05:38 | DX: G89.29 Other chronic pain (principal); Z59.01 Sheltered homelessness | CPT/HCPCS: A0425; A0429; A0999 ==

== ENCOUNTER 2024-01-24 06:11 | Emergency (ER) | payer MEDICAID ==
[2024-01-24] MEDS: SODIUM CHLORIDE 0.9% 1,000 ML IV STA (06:35)
[2024-01-24 06:53] LABS: BASOPHILS # (AUTO) 0.1 10^3/uL (0.0-0.1); BASOPHILS % (AUTO) 0.4 %; EOSINOPHILS % (AUTO) 0.1 %; HCT - HEMATOCRIT 36.4 % (37.0-47.0); HGB - HEMOGLOBIN 11.5 g/dL (12.0-16.0); LYMPHOCYTES # (AUTO) 1.6 10^3/uL (1.5-3.5); MEAN CORPUSCULAR HEMOGLOBIN 27.3 pg (27.0-31.0); MEAN CORPUSCULAR HGB CONC 31.6 g/dL (32.0-36.0); MEAN CORPUSCULAR VOLUME 86.5 fL (81.0-99.0); MEAN PLATELET VOLUME 10.1 fL (7.9-10.8); MONOCYTES # (AUTO) 1.2 10^3/uL (0.0-1.0); MONOCYTES % (AUTO) 7.9 %; NEUTROPHILS # (AUTO) 12.7 10^3/uL (1.5-6.6); NEUTROPHILS % (AUTO) 80.9 %; PLT - PLATELET COUNT 362 10^3/uL (130-450); RED BLOOD COUNT 4.21 10^6/uL (4.20-5.40); RED CELL DISTRIBUTION WIDTH 13.2 % (12.0-15.0); WHITE BLOOD COUNT 15.6 x10^3/uL (4.8-10.8)
[2024-01-24] MEDS: KETOROLAC 15 MG/ML VIAL IVP STA (07:14)
[2024-01-24 07:18] LABS: ALBUMIN 3.8 g/dL (3.2-5.5); ALBUMIN/GLOBULIN RATIO 0.9 (1.0-2.2); BILIRUBIN,TOTAL 0.8 mg/dL (0.2-1.0); CALCIUM 9.6 mg/dL (8.5-10.3); CREATININE 1.1 mg/dL (0.6-1.3); POTASSIUM 4.3 mmol/L (3.5-4.5); TOTAL PROTEIN 8.2 g/dL (6.4-8.9)
[2024-01-24 07:25] LABS: B. PARAPERTUSSIS- RESP PCR PAN NOT DETECTED; B. PERTUSSIS- RESP PCR PANEL NOT DETECTED; C. PNEUMONIAE- RESP PCR PANEL NOT DETECTED; CORONAVIRUS 229E-RESP PCR NOT DETECTED; CORONAVIRUS HKU1-RESP PCR NOT DETECTED; CORONAVIRUS NL63-RESP PCR NOT DETECTED; CORONAVIRUS OC43-RESP PCR NOT DETECTED; HUMAN METAPNEUMOVIRUS NOT DETECTED; INFLUENZA A- RESP PCR PANEL NOT DETECTED; INFLUENZA B - RESP PCR PANEL NOT DETECTED; M. PNEUMONIAE- RESP PCR PANEL NOT DETECTED; PARAINFLUENZA VIRUS 1 NOT DETECTED; PARAINFLUENZA VIRUS 2 NOT DETECTED; PARAINFLUENZA VIRUS 3 NOT DETECTED; PARAINFLUENZA VIRUS 4 NOT DETECTED; RHINOVIRUS/ENTEROVIRUS NOT DETECTED; RSV- RESP PCR PANEL NOT DETECTED; SARS-CoV-2 -RESP PCR PANEL NOT DETECTED
[2024-01-24] MEDS ORDERED: iohexoL-300 100 ML VIAL ONE (07:44)
--- NOTE | 2024-01-24 08:01 | ED Physician Documentation ---
History of Present Illness - Stated complaint Stated Complaint: BODY PX - Chief complaint Chief Complaint: General - History obtained from History obtained from: Patient - Additonal information Additional information: Patient is a 53-year-old female with a history of schizophrenia presenting for evaluation of generalized bodyaches for the past 3 days that she describes as feeling stiff all over. She also reports having a nonproductive cough for the past week and denies fever or congestion. She has also been having right-sided abdominal pain with no nausea, vomiting or diarrhea. No chest pain or shortness of air. Patient states that she has had body aches similar to this in the past including last month where she presented to the emergency department. She is unclear on the etiology of these body aches.Patient does Stay at the [facility] and is unsure of any known sick contacts. Review of Systems Constitutional: reports: Myalgias. denies: Fever Nose: denies: Congestion Cardiac: denies: Chest pain / pressure Respiratory: reports: Cough GI: reports: Abdominal Pain. 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 : None HEENT: None Psych: Depression, Schizophrenia Musculoskeletal: None Derm: None - Past Surgical History Past Surgical History: No - Present Medications Home Medications: Ambulatory Orders Medication Instructions Recorded Confirmed Albuterol Sulf [Ventolin Hfa 1 - 2 puffs INH Q4HR PRN #1 each 10/19/23 12/25/23 Inhaler] HYDROcod/ACETAM 5/325 [[place] 5/325] 1 ea PO Q6H PRN #10 tablet 10/19/23 12/25/23 Ondansetron Odt [Zofran] 4 mg TL Q6H PRN #10 tablet 10/19/23 12/25/23 Meloxicam [Mobic] 7.5 mg PO BID 10 Days #20 tablet 12/25/23 dexAMETHasone [Decadron] 4 mg PO DAILY #5 tablet 12/25/23 Albuterol Sulf [Ventolin Hfa 2 - 3 puffs INH Q4HR PRN #1 each 12/26/23 Inhaler] Famotidine [Pepcid] 20 mg PO DAILY #20 tablet 12/26/23 Ondansetron Odt [Zofran] 4 mg TL Q6H PRN #10 tablet 12/26/23 Promethazine Supp [Phenergan Supp] 25 mg [place] Q6H PRN #10 supp 12/26/23 Doxycycline Hyclate 100 mg PO BID #14 tab 01/24/24 - Allergies Allergies/Adverse Reactions: Allergies Allergy/AdvReac Type Severity Reaction Status Date / Time Penicillins Allergy Unknown Respiratory Verified 12/26/23 07:35 codeine Allergy Respiratory Verified 12/26/23 07:35 - Social History Does the pt smoke?: No Smoking Status: Never smoker Does the pt drink ETOH?: No Does the pt have substance abuse?: No - Immunizations Immunizations are current?: Yes - POLST Patient has POLST: No PD ED PE NORMAL - General General: Alert and oriented X 3, No acute distress, Well developed/nourished - HEENT HEENT: Atraumatic, Moist mucous membranes, Pharynx benign - Neck Neck: Supple, no meningeal sign - Cardiac Cardiac: RRR, Strong equal pulses - Respiratory Respiratory: No respiratory distress, Clear bilaterally - Abdomen Abdomen: Normal bowel sounds, Soft, Non distended, Other (Right-sided abdominal tenderness) - Derm Derm: Other (Faint erythema over the dorsum of her right hand, patient denies any known bug bites) - Extremities Extremities: No deformity, No calf tenderness / cord - Neuro Neuro: Alert and oriented X 3, Normal speech Results - Vitals Vitals: Vital Signs - 24 hr 01/24/24 01/24/24 01/24/24 06:20 08:20 09:26 Temperature 37.7 C 37.2 C Heart Rate 86 94 89 Respiratory 18 18 18 Rate Blood Pressure 161/75 H 167/78 H 168/84 H O2 Saturation 98 96 95 01/24/24 10:23 Temperature Heart Rate 78 Respiratory 18 Rate Blood Pressure 97/76 O2 Saturation 100 Oxygen O2 Source Room air - Labs Labs: Laboratory Tests 01/24/24 01/24/24 01/24/24 06:16 06:48 06:48 WBC 15.6 H RBC 4.21 Hgb 11.5 L Hct 36.4 L MCV 86.5 MCH 27.3 MCHC 31.6 L RDW 13.2 Plt Count 362 MPV 10.1 Neut # (Auto) 12.7 H Lymph # (Auto) 1.6 [place] # (Auto) 1.2 H Eos # (Auto) 0.0 Baso # (Auto) 0.1 Absolute Nucleated RBC 0.00 Nucleated RBC % 0.0 Sodium 134 L Potassium 4.3 Chloride 100 L Carbon Dioxide 25 Anion Gap 9.0 BUN 12 Creatinine 1.1 Estimated GFR (MDRD) 52 L Glucose 285 H Calcium 9.6 Total Bilirubin 0.8 AST 10 ALT 6 L Alkaline Phosphatase 77 Total Protein 8.2 Albumin 3.8 Globulin 4.4 H Albumin/Globulin Ratio 0.9 L Lipase 23 Urine Color Urine Clarity Urine pH Ur Specific [place] Urine Protein Urine Glucose (UA) Urine Ketones Urine Occult Blood Urine Nitrite Urine Bilirubin Urine Urobilinogen Ur Leukocyte Esterase Urine RBC Urine WBC Ur Squamous Epith Cells Urine Bacteria Ur Microscopic Review Urine Culture Comments Nasal Adenovirus (PCR) NOT DETECTED Nasal B. parapertussis DNA (PCR) NOT DETECTED Nasal Coronavir 229E PCR NOT DETECTED Nasal Coronavir HKU1 PCR NOT DETECTED Nasal Coronavir NL63 PCR NOT DETECTED Nasal Coronavir OC43 PCR NOT DETECTED Nasal Enterovir/Rhinovir PCR NOT DETECTED Nasal Influenza B PCR NOT DETECTED Nasal Influenza A PCR NOT DETECTED Nasal Parainfluen 1 PCR NOT DETECTED Nasal Parainfluen 2 PCR NOT DETECTED Nasal Parainfluen 3 PCR NOT DETECTED Nasal Parainfluen 4 PCR NOT DETECTED Nasal RSV (PCR) NOT DETECTED Nasal B.pertussis DNA PCR NOT DETECTED Nasal C.pneumoniae (PCR) NOT DETECTED [place] Human Metapneumo PCR NOT DETECTED Nasal M.pneumoniae (PCR) NOT DETECTED Nasal SARS-CoV-2 (PCR) NOT DETECTED 01/24/24 09:29 WBC RBC Hgb Hct MCV MCH MCHC RDW Plt Count MPV Neut # (Auto) Lymph # (Auto) [place] # (Auto) Eos # (Auto) Baso # (Auto) Absolute Nucleated RBC Nucleated RBC % Sodium Potassium Chloride Carbon Dioxide Anion Gap BUN Creatinine Estimated GFR (MDRD) Glucose Calcium Total Bilirubin AST ALT Alkaline Phosphatase Total Protein Albumin Globulin Albumin/Globulin Ratio Lipase Urine Color YELLOW Urine Clarity CLEAR Urine pH 6.0 Ur Specific [place] 1.020 Urine Protein 30 H Urine Glucose (UA) >=1000 H Urine Ketones TRACE Urine Occult Blood NEGATIVE Urine Nitrite NEGATIVE Urine Bilirubin NEGATIVE Urine Urobilinogen 0.2 (NORMAL) Ur Leukocyte Esterase NEGATIVE Urine RBC 0-5 Urine WBC 0-3 Ur Squamous Epith Cells MOD Squamous H Urine Bacteria None Seen Ur Microscopic Review INDICATED Urine Culture Comments NOT INDICATED Nasal Adenovirus (PCR) Nasal B. parapertussis DNA (PCR) Nasal Coronavir 229E PCR Nasal Coronavir HKU1 PCR Nasal Coronavir NL63 PCR Nasal Coronavir OC43 PCR Nasal Enterovir/Rhinovir PCR Nasal Influenza B PCR Nasal Influenza A PCR Nasal Parainfluen 1 PCR Nasal Parainfluen 2 PCR Nasal Parainfluen 3 PCR Nasal Parainfluen 4 PCR Nasal RSV (PCR) Nasal B.pertussis DNA PCR Nasal C.pneumoniae (PCR) [place] Human Metapneumo PCR Nasal M.pneumoniae (PCR) Nasal SARS-CoV-2 (PCR) PD Medical Decision Making - ED course Complexity details: reviewed results, re-evaluated patient, d/w patient ED course: Patient is a 53-year-old female presenting for evaluation of bodyaches, cough, abdominal pain. Chest x-ray which I reviewed is negative for pneumonia. CBC, chemistries reviewed and mild leukocytosis of 15,000. Urine is not suggestive of infection. She did have mild right-sided abdominal pain on exam so was given a dose of IV Dilaudid And IV Toradol with improvement in symptoms. CT scan was obtained without acute findings. Patient does have mild erythema and warmth to the right hand is suggestive of a cellulitis. She denies trauma. No signs of joint infection. Will start on doxycycline for cellulitis. Patient counseled on need for close follow-up as well as advised on concerning symptoms to return for. She is ambulatory at discharge. Departure - Departure Disposition: 01 Home, Self Care Clinical Impression: Leukocytosis, Whole body pain, Cellulitis of right hand, Abdominal pain Condition: Stable Instructions: ED Abdominal Pain Female Non-Specific Abdominal Pain, ED Infec Skin Cellulitis Follow-Up: [facility] [place] [Provider Group] Prescriptions: Doxycycline Hyclate 100 mg PO BID #14 tab Comments: Your testing today shows that your white blood cell count is slightly elevated and your blood sugar was also in the 200 range. Your chest x-ray does not show pneumonia and there are no other findings on your abdominal CT. You do have findings of a skin infection to your right hand so I am starting you on an antibiotic and I have sent this prescription to [facility] in [place]. I would recommend close follow-up with your primary care doctor as you likely need further testing giving these episodes of total body pains As well as for follow- up for the infection. Please return to the emergency department if you develop any worsening symptoms such as increased redness, swelling, pain or any other concerns. Forms: PCP List Discharge Date/Time: 01/24/24 10:23
--- NOTE | 2024-01-24 08:06 | XRAY Report ---
PROCEDURE: Chest 1V INDICATIONS: cough TECHNIQUE: One view of the chest was acquired. COMPARISON: 12/26/2023 FINDINGS: Surgical changes and devices: None. Lungs and pleura: No pleural effusions or pneumothorax. Lungs are clear. Mediastinum: Mediastinal contours appear normal. Heart size is normal. Bones and chest wall: No suspicious bony lesions. Overlying soft tissues appear unremarkable. IMPRESSION: No acute cardiopulmonary process. No significant changes. Reviewed by: Nayely Mckee MD on 01/24/2024 8:05 AM PDT Approved by: Nayely Mckee MD on 01/24/2024 8:05 AM PDT Station ID: [id number]
[2024-01-24] MEDS: HYDROmorphone 1 MG/ML CARPUJECT IVP STA (08:16)
--- NOTE | 2024-01-24 08:57 | CT Report ---
PROCEDURE: Abdomen/Pelvis W INDICATIONS: R sided abd pain CONTRAST: 100ml omni 300 TECHNIQUE: After the administration of intravenous contrast, a CT scan of the abdomen and pelvis was performed. Images were recorded and evaluated at appropriate window settings. Reformats: coronal and sagittal. F or radiation dose reduction, the following was used: automated exposure control, adjustment of mA and /or kV according to patient size. COMPARISON: 09/18/2023 FINDINGS: Image quality: Diagnostic. Lower chest: Mild left base atelectasis. Liver: Scattered thin-walled hepatic hypodensities, stable, and most likely cysts. No solid mass. Gallbladder and biliary tree: No gallbladder wall thickening or calcifications. No biliary tree dilat ation. Spleen: No splenomegaly. Pancreas: No pancreatic ductal dilation. Adrenals: No adrenal nodule. Kidneys and ureters: Symmetric enhancement. No hydronephrosis or nephrolithiasis. No solid mass or cy st requiring follow-up. No hydroureter or ureteral calcifications. Stomach, bowel and peritoneum: Stomach and small bowel are normal. Normal appendix. Normal quantity o f proximal colon stool. There is aeration of the sigmoid. The distal colon is otherwise decompressed. No pericolonic inflammation or suspicious wall thickening.. There is a cluster of surgical clips in the mid right abdomen. No free fluid, focal fluid collection, or free air. Lymph nodes: No central or retroperitoneal adenopathy. Vessels: Normal caliber abdominal aorta, IVC, and portal vein. PELVIS Reproductive organs: Normal CT appearance of uterus and ovaries. Bladder: Distended. Normal wall thickness. No stones or mass visible. Pelvic lymph nodes: No pelvic adenopathy by size criteria. Bones: No aggressive osseous abnormality. Other: No significant ventral or inguinal hernia. IMPRESSION: No acute process. Reviewed by: Nayely Mckee MD on 01/24/2024 8:56 AM PDT Approved by: Nayely Mckee MD on 01/24/2024 8:56 AM PDT Station ID: [id number]
[2024-01-24 09:37] LABS: BILIRUBIN,URINE NEGATIVE (NEGATIVE); CLARITY,URINE CLEAR (CLEAR); GLUCOSE, URINE (UA) >=1000 mg/dL (NEGATIVE); KETONES,URINE (UA) TRACE mg/dL (NEGATIVE); LEUKOCYTE ESTERASE, URINE NEGATIVE (NEGATIVE); NITRITE,URINE NEGATIVE (NEGATIVE); OCCULT BLOOD,URINE NEGATIVE (NEGATIVE); PROTEIN,URINE 30 mg/dL (NEGATIVE); UROBILINOGEN,URINE 0.2 (NORMAL) E.U./dL (NORMAL)
[2024-01-24 09:43] LABS: BACTERIA,URINE None Seen /HPF (None Seen); RBC,URINE 0-5 /HPF (0-5); SQUAMOUS EPITHELIAL CELL,UR MOD Squamous (<= Few); WBC,URINE 0-3 /HPF (0-5)
[2024-01-24] MEDS: DOXYCYCLINE 100 MG TABLET PO STA (10:06)
[2024-01-24 10:28] VITALS: BP 97/76; O2SAT 100
== END 2024-01-24 10:23 | disposition home or self-care (01) ==
LOC: EDUNIT# → ED 06:11
DX: L03.113 Cellulitis of right upper limb (principal); D72.829 Elevated white blood cell count, unspecified; R10.9 Unspecified abdominal pain; I10 Essential (primary) hypertension; E11.9 Type 2 diabetes mellitus without complications; F20.9 Schizophrenia, unspecified; Z79.899 Other long term (current) drug therapy
CPT/HCPCS: 36415; 71045; 74177; 80053; 81001; 83690; 85025; 87633; 96374; 96375; 99284; A9270; J1170; Q9967; 81003; 87086

== ENCOUNTER 2024-01-25 11:58 | Emergency (ER) | payer MEDICAID ==
[2024-01-25 12:11] VITALS: BP 160/90; O2SAT 100
--- NOTE | 2024-01-25 12:16 | ED Physician Documentation ---
History of Present Illness - Stated complaint Stated Complaint: ITCHY SCALP - Chief complaint Chief Complaint: General - History obtained from History obtained from: Patient - Additonal information Additional information: She is staying at a half-way and they noticed nits on the bedding and was referred here for evaluation for possible head lice. She has mild itchy scalp but is generally asymptomatic. 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 : None HEENT: None Psych: Depression, Schizophrenia Musculoskeletal: None Derm: None - Past Surgical History Past Surgical History: No - Present Medications Home Medications: Ambulatory Orders Medication Instructions Recorded Confirmed Albuterol Sulf [Ventolin Hfa 1 - 2 puffs INH Q4HR PRN #1 each 10/19/23 12/25/23 Inhaler] HYDROcod/ACETAM 5/325 [[place] 5/325] 1 ea PO Q6H PRN #10 tablet 10/19/23 12/25/23 Ondansetron Odt [Zofran] 4 mg TL Q6H PRN #10 tablet 10/19/23 12/25/23 Meloxicam [Mobic] 7.5 mg PO BID 10 Days #20 tablet 12/25/23 dexAMETHasone [Decadron] 4 mg PO DAILY #5 tablet 12/25/23 Albuterol Sulf [Ventolin Hfa 2 - 3 puffs INH Q4HR PRN #1 each 12/26/23 Inhaler] Famotidine [Pepcid] 20 mg PO DAILY #20 tablet 12/26/23 Ondansetron Odt [Zofran] 4 mg TL Q6H PRN #10 tablet 12/26/23 Promethazine Supp [Phenergan Supp] 25 mg [place] Q6H PRN #10 supp 12/26/23 Doxycycline Hyclate 100 mg PO BID #14 tab 01/24/24 Permethrin [Lice Killing] 59 ml TP ONCE #2 ea 01/25/24 - Allergies Allergies/Adverse Reactions: Allergies Allergy/AdvReac Type Severity Reaction Status Date / Time Penicillins Allergy Unknown Respiratory Verified 01/25/24 12:02 codeine Allergy Respiratory Verified 01/25/24 12:02 - Social History Does the pt smoke?: No Smoking Status: Never smoker Does the pt drink ETOH?: No Does the pt have substance abuse?: No - Immunizations Immunizations are current?: Yes - POLST Patient has POLST: No PD ED PE NORMAL - Vitals Vital signs reviewed: Yes - General General: Alert and oriented X 3, No acute distress - HEENT HEENT: Other (I am able to visualize some lice and nits in the hair) - Neuro Neuro: Alert and oriented X 3 Results - Vitals Vitals: Vital Signs - 24 hr 01/25/24 12:02 Temperature 36.5 C Heart Rate 100 Respiratory 16 Rate Blood Pressure 160/90 H O2 Saturation 100 Oxygen O2 Source Room air Departure - Departure Disposition: Home, Self Care Clinical Impression: Pediculosis capitis Condition: Good Instructions: ED Lice Head Prescriptions: Permethrin [Lice Killing] 59 ml TP ONCE #2 ea Comments: Use the lice treatment today. Put it on your hair and make sure he gets all over and then leave it on for 10 minutes before rinsing it out in the shower. You need to repeat it in 1 week. Forms: PCP List
== END 2024-01-25 12:20 | disposition home or self-care (01) ==
LOC: ED 11:58
DX: B85.0 Pediculosis due to Pediculus humanus capitis (principal); I10 Essential (primary) hypertension; E11.9 Type 2 diabetes mellitus without complications; Z79.899 Other long term (current) drug therapy
CPT/HCPCS: 99282; 99283

== ENCOUNTER 2024-01-27 06:06 | Outpatient (CLI) | payer MEDICAID | END 2024-01-27 23:59 | disposition critical access hospital (66) | LOC: EMS 06:06 | DX: R53.1 Weakness (principal); R52 Pain, unspecified; I10 Essential (primary) hypertension; R73.9 Hyperglycemia, unspecified; R50.9 Fever, unspecified; R23.8 Other skin changes | CPT/HCPCS: A0425; A0427; A0999 ==

== ENCOUNTER 2024-01-27 06:14 | Emergency (ER) | payer MEDICAID ==
[2024-01-27] MEDS: KETOROLAC 15 MG/ML VIAL IVP STA (06:47)
--- NOTE | 2024-01-27 07:09 | ED Physician Documentation ---
PD HPI URI - Stated complaint Stated Complaint: PAIN - Chief complaint Chief Complaint: General - History obtained from History obtained from: Patient - History of Present Illness Timing - onset: How many days ago (5) Timing duration: Days (5) Timing details: Gradual onset, Still present, Waxing and waning Associated symptoms: Chills, Nasal congestion. No: Fever, Chest pain, Dyspnea, NVD Contributing factors: No: Sick contact, Immunocompromised Similar symptoms before: No diagnosis (has had episodes of geeneral aches and malaise over past few months, with periods of feeling well in between. Seen recently for similar and Dx with cellulitis of hand, with Rx of doxycycline for cellulitis. Pt states has not improved over the past 2 days since started it.) Review of Systems Constitutional: reports: Fever, Myalgias Nose: reports: Congestion Throat: denies: Sore throat Cardiac: denies: Chest pain / pressure Respiratory: reports: Dyspnea. denies: Cough GI: reports: Nausea. 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 : None HEENT: None Psych: Depression, Schizophrenia Musculoskeletal: None Derm: None - Past Surgical History Past Surgical History: No - Present Medications Home Medications: Ambulatory Orders Medication Instructions Recorded Confirmed Albuterol Sulf [Ventolin Hfa 1 - 2 puffs INH Q4HR PRN #1 each 10/19/23 12/25/23 Inhaler] Albuterol Sulf [Ventolin Hfa 2 - 3 puffs INH Q4HR PRN #1 each 12/26/23 Inhaler] Doxycycline Hyclate 100 mg PO BID #14 tab 01/24/24 01/27/24 Permethrin [Lice Killing] 59 ml TP ONCE #2 ea 01/25/24 01/27/24 Cholecalciferol [Vitamin D3] 5,000 unit PO DAILY #30 cap 01/27/24 Ferrous Gluconate 324 mg PO DAILY #30 tablet 01/27/24 Magnesium Oxide [Mag-Oxide] 200 mg PO DAILY #30 tablet 01/27/24 Meloxicam 15 mg PO DAILY #30 tab 01/27/24 Multivit-Min/Iron/Folic Acid/K 1 each PO DAILY #30 tablet 01/27/24 [Multi-Day Plus Minerals Tablet] - Allergies Allergies/Adverse Reactions: Allergies Allergy/AdvReac Type Severity Reaction Status Date / Time Penicillins Allergy Unknown Respiratory Verified 01/27/24 06:27 codeine Allergy Respiratory Verified 01/27/24 06:27 - Social History Does the pt smoke?: No Smoking Status: Never smoker Does the pt drink ETOH?: No Does the pt have substance abuse?: No - Immunizations Immunizations are current?: Yes - POLST Patient has POLST: No PD ED PE NORMAL - Vitals Vital signs reviewed: Yes - General General: Alert and oriented X 3, No acute distress, Well developed/nourished - HEENT HEENT: Ears normal, Moist mucous membranes, Pharynx benign - Neck Neck: Supple, no meningeal sign, No adenopathy - Cardiac Cardiac: No murmur. No: RRR (regular with mild tachycardia. ) - Respiratory Respiratory: No respiratory distress, Clear bilaterally - Abdomen Abdomen: Normal bowel sounds, Soft, Non tender, Non distended, No organomegaly - Derm Derm: Normal color, Warm and dry - Extremities Extremities: No tenderness to palpate, Normal ROM s pain, Other (hands with mild swelling dorsal aspect mainly right. No noted sores/lesions. Some tender without deformity.) - Neuro Neuro: No motor deficit, No sensory deficit Results - Vitals Vitals: Vital Signs - 24 hr 01/27/24 01/27/24 01/27/24 06:20 08:26 10:15 Temperature 37.8 C Heart Rate 102 H 97 96 Respiratory 16 18 20 Rate Blood Pressure 184/88 H 181/92 H 191/85 H O2 Saturation 97 100 100 Oxygen O2 Source Room air - Labs Labs: Laboratory Tests 01/27/24 01/27/24 01/27/24 07:50 07:50 07:50 WBC 17.0 H RBC 3.57 L Hgb 9.8 L Hct 31.2 L MCV 87.4 MCH 27.5 MCHC 31.4 L RDW 13.2 Plt Count 337 MPV 10.4 Neut # (Auto) 14.1 H Lymph # (Auto) 1.4 L Pitt # (Auto) 1.3 H Eos # (Auto) 0.0 Baso # (Auto) 0.1 Absolute Nucleated RBC 0.00 Nucleated RBC % 0.0 Sodium 137 Potassium 3.4 L Chloride 105 Carbon Dioxide 24 Anion Gap 8.0 BUN 11 Creatinine 0.9 Estimated GFR (MDRD) 65 L Glucose 243 H Calcium 8.4 L Phosphorus 2.2 L Magnesium 1.6 L Iron < 10 L TIBC 183 L % Saturation TNP Transferrin 131 L Total Bilirubin 0.7 AST 12 ALT 9 L Alkaline Phosphatase 73 Total Creatine Kinase 31 C-Reactive Protein 31.9 H Total Protein 7.0 Albumin 3.0 L Globulin 4.0 Albumin/Globulin Ratio 0.8 L Lipase 35 Urine Color Urine Clarity Urine pH Ur Specific [place] Urine Protein Urine Glucose (UA) Urine Ketones Urine Occult Blood Urine Nitrite Urine Bilirubin Urine Urobilinogen Ur Leukocyte Esterase Urine RBC Urine WBC Ur Squamous Epith Cells Urine Bacteria Ur Microscopic Review Urine Culture Comments C. glabrata (PCR) C. krusei (PCR) Nely species DNA Chlam trachomat DNA PCR N.gonorrhoeae DNA (PCR) T. vaginalis (PCR) Bact Vaginosis (PCR) 01/27/24 01/27/24 01/27/24 08:00 08:00 08:00 WBC RBC Hgb Hct MCV MCH MCHC RDW Plt Count MPV Neut # (Auto) Lymph # (Auto) Pitt # (Auto) Eos # (Auto) Baso # (Auto) Absolute Nucleated RBC Nucleated RBC % Sodium Potassium Chloride Carbon Dioxide Anion Gap BUN Creatinine Estimated GFR (MDRD) Glucose Calcium Phosphorus Magnesium Iron TIBC % Saturation Transferrin Total Bilirubin AST ALT Alkaline Phosphatase Total Creatine Kinase C-Reactive Protein Total Protein Albumin Globulin Albumin/Globulin Ratio Lipase Urine Color YELLOW Urine Clarity CLEAR Urine pH 6.0 Ur Specific [place] 1.025 Urine Protein 30 H Urine Glucose (UA) >=1000 H Urine Ketones 15 H Urine Occult Blood NEGATIVE Urine Nitrite NEGATIVE Urine Bilirubin NEGATIVE Urine Urobilinogen 1 (NORMAL) Ur Leukocyte Esterase NEGATIVE Urine RBC 0-5 Urine WBC 0-3 Ur Squamous Epith Cells NONE SEEN Urine Bacteria Few Ur Microscopic Review INDICATED Urine Culture Comments NOT INDICATED C. glabrata (PCR) NEGATIVE C. krusei (PCR) NEGATIVE Nely species DNA NEGATIVE Chlam trachomat DNA PCR NEGATIVE N.gonorrhoeae DNA (PCR) NEGATIVE T. vaginalis (PCR) NEGATIVE TNP Bact Vaginosis (PCR) NEGATIVE PD Medical Decision Making - ED course Complexity details: reviewed old records (prior visits to ER, most recent a few days ago ), reviewed results (with some elevated WBC and CRP. Unclear the cause as has had testing for rheumatoid, Lupus, and tests for infections with viral panel, UA, CXR. Unclear if serial viral illnesses, or if resurgent process not identified. ), considered differential, d/w patient Departure - Departure Disposition: 01 Home, Self Care Clinical Impression: Electrolyte imbalance, Myalgia, Leukocytosis, Anemia, iron deficiency Condition: Stable Record reviewed to determine appropriate education?: Yes Prescriptions: Ferrous Gluconate 324 mg PO DAILY #30 tablet Magnesium Oxide [Mag-Oxide] 200 mg PO DAILY #30 tablet Meloxicam 15 mg PO DAILY #30 tab Multivit-Min/Iron/Folic Acid/K [Multi-Day Plus Minerals Tablet] 1 each PO DAILY #30 tablet Cholecalciferol [Vitamin D3] 5,000 unit PO DAILY #30 cap Comments: Your white blood cell count and inflammatory markers of C-reactive protein are still elevated. This is suggestive of some likely immune or infectious process. For now I would continue with the doxycycline antibiotic for your skin infection. Your blood testing again shows some electrolyte abnormalities that are little more than they had been and also anemia with a blood count hemoglobin of 9.8 which is a little lower than it had been. This looks to relate to iron deficiency. For your general pains, we can go with the anti-inflammatory we had done previously that seemed to help. Take meloxicam daily for the next several weeks to a month. In addition I am prescribing a multivitamin with minerals as well as specific supplements for iron, magnesium and vitamin D. These will hopefully help your general strength and feeling of wellness and fatigue. Follow-up with your primary care within the next month or so, call for an appointment. I sent your prescriptions to your preferred pharmacy. Still pending is the vaginal culture test. This will result later or tomorrow and will call if there is any positives. We had looked for other sources of infection and on recent visits including viral panel, urine test, x-ray and did not find any obvious. This was an attempt to look for other potential hidden sources of infection such as a vaginitis. Recheck if not improving well over the next several days to week. Forms: PCP List Discharge Date/Time: 01/27/24 10:15
[2024-01-27] MEDS: LACTATED RINGERS 1,000 ML IV STA (07:52)
[2024-01-27] MEDS: ACETAMINOPHEN 500 MG TABLET PO STA (07:52)
[2024-01-27 08:00] LABS: BASOPHILS # (AUTO) 0.1 10^3/uL (0.0-0.1); BASOPHILS % (AUTO) 0.3 %; EOSINOPHILS % (AUTO) 0.1 %; HCT - HEMATOCRIT 31.2 % (37.0-47.0); HGB - HEMOGLOBIN 9.8 g/dL (12.0-16.0); LYMPHOCYTES # (AUTO) 1.4 10^3/uL (1.5-3.5); LYMPHOCYTES % (AUTO) 8.1 %; MEAN CORPUSCULAR HEMOGLOBIN 27.5 pg (27.0-31.0); MEAN CORPUSCULAR HGB CONC 31.4 g/dL (32.0-36.0); MEAN CORPUSCULAR VOLUME 87.4 fL (81.0-99.0); MEAN PLATELET VOLUME 10.4 fL (7.9-10.8); MONOCYTES # (AUTO) 1.3 10^3/uL (0.0-1.0); MONOCYTES % (AUTO) 7.4 %; NEUTROPHILS # (AUTO) 14.1 10^3/uL (1.5-6.6); NEUTROPHILS % (AUTO) 83.2 %; PLT - PLATELET COUNT 337 10^3/uL (130-450); RED BLOOD COUNT 3.57 10^6/uL (4.20-5.40); RED CELL DISTRIBUTION WIDTH 13.2 % (12.0-15.0)
[2024-01-27 08:14] LABS: ALBUMIN/GLOBULIN RATIO 0.8 (1.0-2.2); BILIRUBIN,TOTAL 0.7 mg/dL (0.2-1.0); CALCIUM 8.4 mg/dL (8.5-10.3); CREATININE 0.9 mg/dL (0.6-1.3); MAGNESIUM 1.6 mg/dL (1.7-2.3); PHOSPHORUS 2.2 mg/dL (2.5-5.0); POTASSIUM 3.4 mmol/L (3.5-4.5)
[2024-01-27 08:15] LABS: CRP - C-REACTIVE PROTEIN 31.9 mg/dL (<0.5)
[2024-01-27 08:29] LABS: BILIRUBIN,URINE NEGATIVE (NEGATIVE); GLUCOSE, URINE (UA) >=1000 mg/dL (NEGATIVE); KETONES,URINE (UA) 15 mg/dL (NEGATIVE); LEUKOCYTE ESTERASE, URINE NEGATIVE (NEGATIVE); NITRITE,URINE NEGATIVE (NEGATIVE); OCCULT BLOOD,URINE NEGATIVE (NEGATIVE); PROTEIN,URINE 30 mg/dL (NEGATIVE); UROBILINOGEN,URINE 1 (NORMAL) E.U./dL (NORMAL)
[2024-01-27 08:32] LABS: CLARITY,URINE CLEAR (CLEAR)
[2024-01-27 08:44] LABS: IRON < 10 ug/dL (50-212); TOTAL IRON BINDING CAPACITY 183 ug/dL (250-450); TRANSFERRIN 131 mg/dL (203-362)
[2024-01-27 08:51] LABS: RBC,URINE 0-5 /HPF (0-5); SQUAMOUS EPITHELIAL CELL,UR NONE SEEN (<= Few); WBC,URINE 0-3 /HPF (0-5)
[2024-01-27 08:52] LABS: BACTERIA,URINE Few /HPF (None Seen)
[2024-01-27] MEDS: MAGNESIUM OXIDE 400 MG TABLET PO STA (09:27)
[2024-01-27 10:07] LABS: BACTERIAL VAGINOSIS DNA NEGATIVE (NEGATIVE); CANDIDA GLABRATA DNA NEGATIVE (NEGATIVE); CANDIDA GROUP DNA NEGATIVE (NEGATIVE); CANDIDA KRUSEI DNA NEGATIVE (NEGATIVE); TRICHOMONAS VAGINALIS DNA NEGATIVE (NEGATIVE)
[2024-01-27 10:17] VITALS: BP 191/85; O2SAT 100
[2024-01-27 12:13] LABS: CHLAMYDIA TRACHOMATIS DNA NEGATIVE (NEGATIVE); NEISSERIA GONORRHOEAE DNA NEGATIVE (NEGATIVE)
== END 2024-01-27 10:15 | disposition home or self-care (01) ==
LOC: EDUNIT# → EDBD → ED 06:14
DX: E87.8 Other disorders of electrolyte and fluid balance, not elsewhere classified (principal); M79.10 Myalgia, unspecified site; D72.829 Elevated white blood cell count, unspecified; D50.9 Iron deficiency anemia, unspecified; I10 Essential (primary) hypertension; E11.9 Type 2 diabetes mellitus without complications; Z79.899 Other long term (current) drug therapy
CPT/HCPCS: 36415; 80053; 81001; 81514; 82550; 83540; 83690; 83735; 84100; 84466; 85025; 86140; 86780; 87491; 87591; 96361; 96374; 99284; A9270; J7120; 81003; 87086; 87661

== ENCOUNTER 2024-02-10 09:32 | Emergency (ER) | payer MEDICAID ==
[2024-02-10 09:54] VITALS: BP 201/98
--- NOTE | 2024-02-10 10:11 | ED Physician Documentation ---
History of Present Illness - Stated complaint Stated Complaint: MED REFILL,BILAT LEG PX,MUSCLE TIGHTNESS - Chief complaint Chief Complaint: General - History obtained from History obtained from: Patient - Additonal information Additional information: Patient is a 53-year-old female with a history of schizophrenia presenting for refills of recent medications that she has received. Patient was recently seen in the emergency department with multiple areas of joint pain and thought to possibly have an autoimmune condition. She was started on meloxicam which she has been using once a day. She is asking for a 1 year supply of meloxicam. She additionally had an area of redness to her right hand and was given a week of doxycycline. She is asking for a refill of this as she states her legs still hurt. I explained that this was for an infection and asked if she has concerns for infection in her legs which she does not.She has not tried to follow-up with her PCP since prior ED evaluations. Review of Systems Constitutional: denies: Fever Cardiac: denies: Chest pain / pressure GI: denies: Abdominal Pain : denies: Dysuria Musculoskeletal: reports: Joint pain PD PAST MEDICAL HISTORY - Past Medical History Past Medical History: Yes Cardiovascular: Hypertension Respiratory: None Neuro: None Endocrine/Autoimmune: Type 2 diabetes GI: None TRAINING MGR: None : None HEENT: None Psych: Depression, Schizophrenia Musculoskeletal: None Derm: None - Past Surgical History Past Surgical History: No - Present Medications Home Medications: Ambulatory Orders Medication Instructions Recorded Confirmed Albuterol Sulf [Ventolin Hfa 1 - 2 puffs INH Q4HR PRN #1 each 10/19/23 12/25/23 Inhaler] Albuterol Sulf [Ventolin Hfa 2 - 3 puffs INH Q4HR PRN #1 each 12/26/23 Inhaler] Doxycycline Hyclate 100 mg PO BID #14 tab 01/24/24 01/27/24 Permethrin [Lice Killing] 59 ml TP ONCE #2 ea 01/25/24 01/27/24 Cholecalciferol [Vitamin D3] 5,000 unit PO DAILY #30 cap 01/27/24 Ferrous Gluconate 324 mg PO DAILY #30 tablet 01/27/24 Magnesium Oxide [Mag-Oxide] 200 mg PO DAILY #30 tablet 01/27/24 Meloxicam 15 mg PO DAILY #30 tab 01/27/24 Multivit-Min/Iron/Folic Acid/K 1 each PO DAILY #30 tablet 01/27/24 [Multi-Day Plus Minerals Tablet] - Allergies Allergies/Adverse Reactions: Allergies Allergy/AdvReac Type Severity Reaction Status Date / Time Penicillins Allergy Unknown Respiratory Verified 02/10/24 09:45 codeine Allergy Respiratory Verified 02/10/24 09:45 - Social History Does the pt smoke?: No Smoking Status: Never smoker Does the pt drink ETOH?: No Does the pt have substance abuse?: No - Immunizations Immunizations are current?: Yes - POLST Patient has POLST: No PD ED PE NORMAL - General General: Alert and oriented X 3, No acute distress, Well developed/nourished - HEENT HEENT: Atraumatic, Moist mucous membranes - Neck Neck: Supple, no meningeal sign - Cardiac Cardiac: RRR - Respiratory Respiratory: No respiratory distress, Clear bilaterally - Derm Derm: Warm and dry, No rash - Extremities Extremities: No deformity - Neuro Neuro: Alert and oriented X 3, No motor deficit, Normal speech Results - Vitals Vitals: Vital Signs - 24 hr 02/10/24 02/10/24 09:42 10:46 Temperature 36.7 C Heart Rate 87 88 Respiratory 15 15 Rate Blood Pressure 201/98 H 201/98 H O2 Saturation 98 100 Oxygen O2 Source Room air PD Medical Decision Making - ED course ED course: Patient is a 53-year-old female presenting For refills of medication she has recently received from the emergency department. I explained that the doxycycline she had received was for an infection and her infection on the right arm is improved and no longer requires antibiotics. She is also on meloxicam for joint pain which she states has been helping. However in her bottle she still has at least 2 weeks worth of pills left. Patient was encouraged to reach out to her PCP today to establish a follow-up appointment. She is otherwise ambulatory without any distress. Her blood pressure has been elevated here and recommend also close follow-up for recheck. Departure - Departure Disposition: 01 Home, Self Care Clinical Impression: Recurrent joint pain, Elevated blood pressure reading Condition: Stable Instructions: ED Joint Pain Follow-Up: [facility] [Provider Group] Comments: You need to call your doctor today at the would be clinic to get a follow-up appointment. You have been seen in the emergency department for joint pains in multiple areas and you need more testing to determine why this is happening. You have enough meloxicam for the time being and do not need a refill right now. Further refills should come from your primary care doctor. You do not need any more of the antibiotic Doxycycline at this time. Your blood pressure was high. You do need to have your blood pressure rechecked by your doctor in the next 1 to 2 weeks. Forms: PCP List Discharge Date/Time: 02/10/24 10:48
[2024-02-10 10:52] VITALS: O2SAT 100
== END 2024-02-10 10:48 | disposition home or self-care (01) ==
LOC: ED 09:32
DX: F20.9 Schizophrenia, unspecified (principal); Z76.0 Encounter for issue of repeat prescription; M25.50 Pain in unspecified joint; I10 Essential (primary) hypertension; E11.9 Type 2 diabetes mellitus without complications; Z79.899 Other long term (current) drug therapy
CPT/HCPCS: 99281; 99282

== ENCOUNTER 2024-04-08 06:01 | Outpatient (CLI) | payer MEDICAID | END 2024-04-08 23:59 | disposition critical access hospital (66) | LOC: EMS 06:01 | DX: R25.2 Cramp and spasm (principal); R68.89 Other general symptoms and signs; Z59.02 Unsheltered homelessness | CPT/HCPCS: A0425; A0429; A0999 ==

== ENCOUNTER 2024-04-08 06:21 | Emergency (ER) | payer MEDICAID ==
--- NOTE | 2024-04-08 07:24 | ED Physician Documentation ---
PD HPI MHE - Stated complaint Stated Complaint: COLD - Chief complaint Chief Complaint: MHE - History obtained from History obtained from: Patient, EMS - History of Present Illness Primary symptom: Other (she was feeling cold sleeping outdoors. 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 : None HEENT: None Psych: Depression, Schizophrenia Musculoskeletal: None Derm: None - Past Surgical History Past Surgical History: No - Present Medications Home Medications: Ambulatory Orders Medication Instructions Recorded Confirmed Albuterol Sulf [Ventolin Hfa 1 - 2 puffs INH Q4HR PRN #1 each 10/19/23 12/25/23 Inhaler] Albuterol Sulf [Ventolin Hfa 2 - 3 puffs INH Q4HR PRN #1 each 12/26/23 Inhaler] Doxycycline Hyclate 100 mg PO BID #14 tab 01/24/24 01/27/24 Permethrin [Lice Killing] 59 ml TP ONCE #2 ea 01/25/24 01/27/24 Cholecalciferol [Vitamin D3] 5,000 unit PO DAILY #30 cap 01/27/24 Ferrous Gluconate 324 mg PO DAILY #30 tablet 01/27/24 Magnesium Oxide [Mag-Oxide] 200 mg PO DAILY #30 tablet 01/27/24 Meloxicam 15 mg PO DAILY #30 tab 01/27/24 Multivit-Min/Iron/Folic Acid/K 1 each PO DAILY #30 tablet 01/27/24 [Multi-Day Plus Minerals Tablet] Permethrin [Lice Killing] 30 ml TP Q3D #60 ml 04/08/24 - Allergies Allergies/Adverse Reactions: Allergies Allergy/AdvReac Type Severity Reaction Status Date / Time Penicillins Allergy Unknown Respiratory Verified 04/08/24 06:23 codeine Allergy Respiratory Verified 04/08/24 06:23 - Social History Does the pt smoke?: No Smoking Status: Never smoker Does the pt drink ETOH?: No Does the pt have substance abuse?: No - Immunizations Immunizations are current?: Yes - POLST Patient has POLST: No PD ED PE NORMAL - Vitals Vital signs reviewed: Yes - General General: Alert and oriented X 3, No acute distress, Well developed/nourished - HEENT HEENT: Atraumatic, PERRL, EOMI (she does flutter her eyes frequently but it stops when she is attentive to other things. Head bobbing as well. Both chronic. ) - Neck Neck: Supple, no meningeal sign, No adenopathy - Cardiac Cardiac: RRR, No murmur - Respiratory Respiratory: Clear bilaterally - Abdomen Abdomen: Soft, Non tender - Derm Derm: Normal color, Warm and dry - Extremities Extremities: No edema, No calf tenderness / cord, Other (fingers and toes with sensation and no indication of frostbite. ) Results - Vitals Vitals: Oxygen O2 Source Room air PD Medical Decision Making - ED course Complexity details: considered differential (no real complaints from patient. She had slept outdoors and was feeling cold. Called EMS.), d/w patient, d/w regional sales consultant (Edyta Schneider talked with pt and tried to get her assistance [facility]. They are familiar with the pt. Unable to find other temp housing. She does appear to have lice still (nits anyway) and can treat again. She was verbally encouraged to use lice comb to get nits out. No complaints. ) ED course: prolonged ED visit due to awaiting call back from [facility] various agencies. Then to try to find alternate housing vouchers until lice treated. Given Rx for Nix hsampoo. No solution found for her sleeping location. To go to [place] now for food/etc, and she is allowed there. Departure - Departure Disposition: 01 Home, Self Care Clinical Impression: Exposure to environmental cold, Homelessness, Head lice Condition: Stable Prescriptions: Permethrin [Lice Killing] 30 ml TP Q3D #60 ml Comments: Our social work has talked with the various resources including [employer] and the [facility] social work. Refer to her directions and referrals. Forms: PCP List Discharge Date/Time: 04/08/24 14:27
[2024-04-08 14:16] VITALS: BP 148/75; O2SAT 99
== END 2024-04-08 14:27 | disposition home or self-care (01) ==
LOC: EDUNIT# → ED 06:21
DX: B85.0 Pediculosis due to Pediculus humanus capitis (principal); T69.9XXA Effect of reduced temperature, unspecified, initial encounter; Z59.00 Homelessness unspecified
CPT/HCPCS: 99283

== ENCOUNTER 2024-04-21 08:56 | Outpatient (CLI) | payer MEDICAID ==
[2024-04-21 12:26] LABS: THYROID STIMULATING HORMONE 0.68 uIU/mL (0.34-5.60)
== END 2024-04-21 08:57 | disposition home or self-care (01) ==
LOC: LAB.N 08:56
DX: Z00.00 Encounter for general adult medical examination without abnormal findings (principal)
CPT/HCPCS: 36415; 84443